=== PATIENT | female | born 1995 | race African-American/Black ===

== ENCOUNTER 2018-11-08 11:55 | Emergency (ER) | payer SELFPAY ==
--- OUTSIDE RECORDS SUMMARY | 2018-11-08 12:06 | XMS REPORT | Summary of Care ---
:1995 Author Organization [facility] Neurosurgery [facility] Address [address] [place] [address], [address] [place] [address]- Encounter HQ Encntr_alias(FIN) [id number] Date(s): 08/05/17 - 08/06/17 [place] [id number] [facility], [address] [place] [address] [phone] Vital Signs No data available for this section Problem List Condition Effective Dates Status Health Status Informant Acute bronchiolitis(Confirmed) Resolved Morbid obesity(Confirmed) Active Allergies, Adverse Reactions, Alerts No data available for this section Medications No data available for this section Results No data available for this section Immunizations No data available for this section Procedures No data available for this section Social History Social History Type Response Smoking Status Current some day smoker; Exposure to Tobacco Smoke Unable to obtain; Cigarette Smoking Last 365 Days Unable to obtain; Reg Smoking Cessation Counseling No Assessment and Plan No data available for this section
--- OUTSIDE RECORDS SUMMARY | 2018-11-08 12:06 | XMS REPORT | Summary of Care ---
:1995 Author Organization [facility] Address [address] [place] [address], [address] [place] [address]- Encounter HQ Encntr_aliharris(FIN) [id number] Date(s): 08/06/17 - 08/06/17 [facility] [place] [id number] [facility], [address] [place] [address] [phone] Discharge Disposition: Home or Self Care Attending Physician: Delroy Waddell MD Referring Physician: George Marrufo MD Vital Signs Most recent to oldest [Reference Range]: 1 Height 160.02 cm (08/06/17 8:40 AM) Temperature Oral [96.4-99.1 DegF] 97.9 DegF (08/06/17 8:40 AM) Blood Pressure [90-140/60-90 mmHg] 139/98 mmHg (08/06/17 8:40 AM) Peripheral Pulse Rate [60-100 bpm] 86 bpm (08/06/17 8:40 AM) Weight 112.727 kg (08/06/17 8:40 AM) Body Mass Index 44.02 m2 (08/06/17 8:40 AM) Problem List Condition Effective Dates Status Health Status Informant Acute bronchiolitis(Confirmed) Resolved Morbid obesity(Confirmed) Active Allergies, Adverse Reactions, Alerts No data available for this section Medications predniSONE 10 mg oral tablet 10 mg=1 tab, PO, Daily, 0 Refill(s) Start Date: 08/06/17 Status: Orderedtramadol 50 mg oral tablet 50 mg=1 tab, PO, Q4H, 0 Refill(s) Start Date: 08/06/17 Status: Ordered Results No data available for this section [...]
--- OUTSIDE RECORDS SUMMARY | 2018-11-08 12:06 | XMS REPORT | Continuity of Care Document ---
:1995 Author Organization Interface Problems Problem Status Onset Classification Date Comments Source Date Reported Acute Resolved Problem 03/08/2018 [facility] bronchiolitis Neuro Morbid obesity Active Problem 03/08/2018 [facility] Medications Medication Details Route Status Patient Ordering Order Source Instructions Provider Date tramadol 50 mg=1 Active [facility] hydrochloride 50 tab, PO, 017 [facility] MG Oral Tablet Q4H, 0 Refill(s) predniSONE 10 mg 10 mg=1 Active [facility] oral tablet tab, PO, 017 Neuro Daily, 0 Refill(s) Allergies, Adverse Reactions, Alerts Substance Category Reaction Severity Reaction Status Date Comments Source type Reported Immunizations Immunization Date Given Site Status Last Updated Comments Source Results Order Results Value Reference Date Interpretation Comments Source Name Range Vital Signs Vital Sign Value Date Comments Source Height 160.02 cm 11/12/2017 [facility] BMI Calculated 45.62 11/12/2017 [facility] Weight 116.818 11/12/2017 [facility] Systolic (mm Hg) 150 11/12/2017 [facility] Diastolic (mm Hg) 79 11/12/2017 [facility] Heart Rate 85 11/12/2017 [facility] Temperature Oral (F) 98.1 F 11/12/2017 [facility] BMI Calculated 44.02 08/06/2017 [facility] Weight 112.727 08/06/2017 [facility] Height 160.02 cm 08/06/2017 [facility] Heart Rate 86 08/06/2017 [facility] Temperature Oral (F) 97.9 F 08/06/2017 [facility] Systolic (mm Hg) 139 08/06/2017 [facility] Diastolic (mm Hg) 98 08/06/2017 [facility] Encounters Location Location Encounter Encounter Reason Attending ADM DC Status Source Details Type Number For Provider Date Date Visit [facility] Phone [id number] 08/05 08/07 [facility]2016 [facility] [id number] JOSE ANGEL KAUR 08/06 Active [facility] [id number] George 08/06 08/07 [facility] /2016 [facility] [id number] JOSE ANGEL KAUR 11/12 Active [place] [facility] [id number] George 11/12 11/13 [facility]2017 [facility] Phone [phone] 11/29 12/01 [facility] Procedures Procedure Code Date Perfomer Comments Source
--- OUTSIDE RECORDS SUMMARY | 2018-11-08 12:07 | XMS REPORT | Summary of Care ---
:1995 Author Organization [facility] Address [address] [place] [address], [address] [place] [address]- Encounter HQ Encntr_alias(FIN) [id number] Date(s): 11/29/17 - 11/30/[address], [address] [facility] [place], [place] [address] [phone] Vital Signs No data available for this [...] to obtain; Reg Smoking Cessation Counseling No entered on: 11/12/17 Assessment and Plan No data available for this section
--- OUTSIDE RECORDS SUMMARY | 2018-11-08 12:07 | XMS REPORT | Summary of Care ---
:1995 Author Organization [facility] Address [address] [facility], [address] [place] [address]- Encounter HQ Encntr_aliharris(FIN) [id number] Date(s): 11/12/17 - 11/12/17 [facility] [address] [facility], [address] [place] [address] [phone] Discharge Disposition: Home or Self Care Attending Physician: Delroy Waddell MD Referring Physician: George Marrufo MD Vital Signs Most recent to oldest [Reference Range]: 1 Height 160.02 cm (11/12/17 10:16 AM) Temperature Oral [96.4-99.1 DegF] 98.1 DegF (11/12/17 10:16 AM) Blood Pressure [90-140/60-90 mmHg] 150/79 mmHg *HI* (11/12/17 10:16 AM) Peripheral Pulse Rate [60-100 bpm] 85 bpm (11/12/17 10:16 AM) Weight 116.818 kg (11/12/17 10:16 AM) Body Mass Index 45.62 m2 (11/12/17 10:16 AM) Problem List Condition Effective Dates Status Health Status Informant Acute bronchiolitis(Confirmed) Resolved Morbid obesity(Confirmed) Active Allergies, Adverse Reactions, Alerts No data available for this section Medications No Known Medications Results No data available for this section [...]
--- OUTSIDE RECORDS SUMMARY | 2018-11-08 12:07 | XMS REPORT | Summary of Care ---
:1995 Author Organization [facility] Address [address] [place] [address], [address] [place] [address]- Encounter HQ Encntr_alias(FIN) [id number] Date(s): 11/29/17 - 11/30/[address], Suite [facility] [place], [place] [address] [phone] Vital Signs No data available for this [...]
--- NOTE | 2018-11-08 13:21 | ER ---
Nurse's Notes [facility] Name: Casi Cordova Age: 23 yrs Sex: Female : 1995 Arrival Date: 11/08/2018 Time: 11:56 Bed 27 Private MD: Diagnosis: Headache;Vertiginous syndromes in diseases classified elsewhere, unspecified ear Presentation: 11/08 12:03 Presenting complaint: Patient states: left ear "clogged" and dizziness started 3 days sv ago. Reports hx of skull fx in 2017. Transition of care: patient was not received from another setting of care. Onset of symptoms was November 05, 2018. Care prior to arrival: None. 12:03 Method Of Arrival: Ambulatory sv 12:03 Acuity: SANDRA 3 sv 13:05 Risk Assessment: Do you want to hurt yourself or someone else? Patient reports no ca1 desire to harm self or others. 13:05 Initial Sepsis Screen: Does the patient meet any 2 criteria? No. Patient's initial ca1 sepsis screen is negative. Does the patient have a suspected source of infection? No. Patient's initial sepsis screen is negative. Triage Assessment: 12:06 General: Appears in no apparent distress. comfortable, Behavior is calm, cooperative, sv appropriate for age. Pain: Denies pain. Neuro: Level of Consciousness is awake, alert, obeys commands, Oriented to person, place, time, situation, Moves all extremities. Full function Gait is steady, Speech is normal, Reports dizziness. Respiratory: Respiratory effort is even, unlabored, Respiratory pattern is regular, symmetrical. 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 - Family history:: not pertinent. - Social history:: Smoking status: Patient/guardian denies using tobacco. - Ebola Screening: : No symptoms or risks identified at this time. Screenin:05 Abuse screen: Denies threats or abuse. Denies injuries from another. Nutritional ca1 screening: No deficits noted. Tuberculosis screening: No symptoms or risk factors identified. Fall Risk None identified. Assessment: 13:05 General: Appears in no apparent distress. comfortable, Behavior is calm, cooperative, ca1 appropriate for age. Pain: Denies pain. Neuro: Level of Consciousness is awake, alert, obeys commands, Oriented to person, place, time, situation, Reports dizziness, since 4 days ago. Cardiovascular: Heart tones S1 S2 present Capillary refill < 3 seconds Patient's skin is warm and dry. Respiratory: Airway is patent Respiratory effort is even, unlabored, Respiratory pattern is regular, symmetrical, Breath sounds are clear bilaterally. GI: Abdomen is round non-distended, Bowel sounds present X 4 quads. Abd is soft and non tender X 4 quads. GI: Patient currently denies nausea, vomiting. : No deficits noted. No signs and/or symptoms were reported regarding the genitourinary system. EENT: No deficits noted. No signs and/or symptoms were reported regarding the EENT system. Derm: Skin is intact, is healthy with good turgor, Skin is pink, warm \\T\\ dry. Musculoskeletal: Circulation, motion, and sensation intact. Capillary refill < 3 seconds. 13:55 Reassessment: Patient appears in no apparent distress at this time. Patient and/or ca1 family updated on plan of care and expected duration. Pain level reassessed. Patient is alert, oriented x 3, equal unlabored respirations, skin warm/dry/pink. Vital Signs: 12:05 BP 128 / 94; Pulse 86; Resp 20; Temp 98.8; Weight 115.67 kg; Height 5 ft. 3 in. (160.02 sv cm); Pain 0/10; 13:05 BP 115 / 72; Pulse 90; Resp 19; Pulse Ox 99% on R/A; ca1 13:30 BP 113 / 87; Pulse 80; Resp 19; Pulse Ox 100% on R/A; ca1 13:55 BP 123 / 74; Pulse 77; Resp 19; Pulse Ox 100% on R/A; ca1 12:05 Body Mass Index 45.17 (115.67 kg, 160.02 cm) sv ED Course: 11:56 Patient arrived in ED. mr 12:04 Triage completed. sv 12:06 Arm band placed on. sv 12:56 Marc Fontanez MD is Attending Physician. [facility] 13:02 Sherry Cali, SHERRY is Primary Nurse. ca1 13:05 Patient has correct armband on for positive identification. Bed in low position. Call ca1 light in reach. Side rails up X 1. Pulse ox on. NIBP on. Warm blanket given. 14:18 No provider procedures requiring assistance completed. Patient did not have IV access ca1 during this emergency room visit. Administered Medications: 13:25 Drug: Zofran 4 mg Route: PO; ca1 14:15 Follow up: Response: No adverse reaction; Nausea is decreased ca1 13:50 Drug: Meclizine 50 mg Route: PO; ca1 14:15 Follow up: Response: No adverse reaction ca1 Outcome: 13:20 Discharge ordered by MD. begum 14:18 Discharged to home ambulatory. ca1 14:18 Condition: stable 14:18 Discharge instructions given to patient, Instructed on discharge instructions, follow up and referral plans. medication usage, Demonstrated understanding of instructions, follow-up care, medications, Prescriptions given X 2. 14:20 Patient left the ED. ca1 Signatures: Yee Romero RN RN Marc Garland MD MD cha Rivera, Mary mr Sherry Cali RN RN ca1 Corrections: (The following items were deleted from the chart) 12:05 12:05 BP 128 / 94; Resp 20bpm; Temp 98.8F; 115.67 kg; Height 5 ft. 3 in.; BMI: 45.1; sv Pain 0/10; sv 22:03 14:25 Response: No adverse reaction; Nausea is decreased ca1 ca1
--- NOTE | 2018-11-08 13:21 | EDPHYS ---
Physician Documentation [facility] Name: Casi Cordova Age: 23 yrs Sex: Female : 1995 Arrival Date: 11/08/2018 Time: 11:56 Bed 27 Private MD: ED Physician Marc Fontanez HPI: 11/08 13:17 This 23 yrs old Black Female presents to ER via Ambulatory with complaints of Dizziness.kel 13:17 The patient presents with dizziness. Onset: The symptoms/episode began/occurred 2 kel day(s) ago. Context: occurred at a hospital. Modifying factors: The symptoms are alleviated by holding head still, the symptoms are aggravated by movement of head, changing position. Associated signs and symptoms: Pertinent positives: headache, nausea. Severity of symptoms: At their worst the symptoms were mild in the emergency department the symptoms are unchanged. Patient's baseline: Neuro: alert and fully oriented. 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 - Family history:: not pertinent. - Social history:: Smoking status: Patient/guardian denies using tobacco. - Ebola Screening: : No symptoms or risks identified at this time. ROS: 13:17 Constitutional: Negative for fever, chills, and weight loss, Eyes: Negative for injury, kel pain, redness, and discharge, ENT: Negative for injury, pain, and discharge, Neck: Negative for injury, pain, and swelling, Cardiovascular: Negative for chest pain, palpitations, and edema, Respiratory: Negative for shortness of breath, cough, wheezing, and pleuritic chest pain, Abdomen/GI: Negative for abdominal pain, nausea, vomiting, diarrhea, and constipation, Back: Negative for injury and pain, : Negative for injury, bleeding, discharge, and swelling, MS/Extremity: Negative for injury and deformity, Skin: Negative for injury, rash, and discoloration, Psych: Negative for depression, anxiety, suicide ideation, homicidal ideation, and hallucinations, Allergy/Immunology: Negative for hives, rash, and allergies, Endocrine: Negative for neck swelling, polydipsia, polyuria, polyphagia, and marked weight changes, Hematologic/Lymphatic: Negative for swollen nodes, abnormal bleeding, and unusual bruising. 13:17 Neuro: Positive for dizziness, headache. Exam: 13:17 Constitutional: This is a well developed, well nourished patient who is awake, alert, kel and in no acute distress. Head/Face: Normocephalic, atraumatic. Eyes: Pupils equal round and reactive to light, extra-ocular motions intact. Lids and lashes normal. Conjunctiva and sclera are non-icteric and not injected. Cornea within normal limits. Periorbital areas with no swelling, redness, or edema. ENT: Nares patent. No nasal discharge, no septal abnormalities noted. Tympanic membranes are normal and external auditory canals are clear. Oropharynx with no redness, swelling, or masses, exudates, or evidence of obstruction, uvula midline. Mucous membranes moist. Neck: Trachea midline, no thyromegaly or masses palpated, and no cervical lymphadenopathy. Supple, full range of motion without nuchal rigidity, or vertebral point tenderness. No Meningismus. Chest/axilla: Normal chest wall appearance and motion. Nontender with no deformity. No lesions are appreciated. Cardiovascular: Regular rate and rhythm with a normal S1 and S2. No gallops, murmurs, or rubs. Normal PMI, no JVD. No pulse deficits. Respiratory: Lungs have equal breath sounds bilaterally, clear to auscultation and percussion. No rales, rhonchi or wheezes noted. No increased work of breathing, no retractions or nasal flaring. Abdomen/GI: Soft, non-tender, with normal bowel sounds. No distension or tympany. No guarding or rebound. No evidence of tenderness throughout. Back: No spinal tenderness. No costovertebral tenderness. Full range of motion. Skin: Warm, dry with normal turgor. Normal color with no rashes, no lesions, and no evidence of cellulitis. MS/ Extremity: Pulses equal, no cyanosis. Neurovascular intact. Full, normal range of motion. Neuro: Awake and alert, GCS 15, oriented to person, place, time, and situation. Cranial nerves II-XII grossly intact. Motor strength 5/5 in all extremities. Sensory grossly intact. Cerebellar exam normal. Normal gait. Psych: Awake, alert, with orientation to person, place and time. Behavior, mood, and affect are within normal limits. Vital Signs: 12:05 BP 128 / 94; Pulse 86; Resp 20; Temp 98.8; Weight 115.67 kg; Height 5 ft. 3 in. (160.02 sv cm); Pain 0/10; 13:05 BP 115 / 72; Pulse 90; Resp 19; Pulse Ox 99% on R/A; ca1 13:30 BP 113 / 87; Pulse 80; Resp 19; Pulse Ox 100% on R/A; ca1 13:55 BP 123 / 74; Pulse 77; Resp 19; Pulse Ox 100% on R/A; ca1 12:05 Body Mass Index 45.17 (115.67 kg, 160.02 cm) sv MDM: 12:56 Patient medically screened. [facility] 13:17 Data reviewed: vital signs, nurses notes. [facility] Administered Medications: 13:25 Drug: Zofran 4 mg Route: PO; ca1 14:15 Follow up: Response: No adverse reaction; Nausea is decreased ca1 13:50 Drug: Meclizine 50 mg Route: PO; ca1 14:15 Follow up: Response: No adverse reaction ca1 Disposition: 11/08/18 13:20 Discharged to Home. Impression: Headache, Vertiginous syndromes in diseases classified elsewhere, unspecified ear. - Condition is Stable. - Discharge Instructions: Dizziness, Vertigo, General Headache Without Cause, Qeha-to-Jpbu. - Prescriptions for Meclizine 25 mg Oral Tablet - take 1 tablet by ORAL route every 8 hours As needed; 26 tablet. Zofran 4 mg Oral Tablet - take 1 tablet by ORAL route every 12 hours As needed; 14 tablet. - Medication Reconciliation Form, Thank You Letter, Antibiotic Education, Prescription Opioid Use form. - Follow up: Private Physician; When: 2 - 3 days; Reason: Recheck today's complaints, Continuance of care, Re-evaluation by your physician. - Problem is new. - Symptoms have improved. Signatures: Yee Romero RN RN Marc Fontanez MD MD kel Sherry Cali RN RN ca1 Corrections: (The following items were deleted from the chart) 14:20 13:20 11/08/2018 13:20 Discharged to Home. Impression: Headache; Vertiginous syndromes ca1 in diseases classified elsewhere, unspecified ear. Condition is Stable. Forms are Medication Reconciliation Form, Thank You Letter, Antibiotic Education, Prescription Opioid Use. Follow up: Private Physician; When: 2 - 3 days; Reason: Recheck today's complaints, Continuance of care, Re-evaluation by your physician. Problem is new. Symptoms have improved. kel
[2018-11-08] MEDS ORDERED: ONDANSETRON 4 MG (ODT) TAB ONE (14:02)
[2018-11-08] MEDS ORDERED: MECLIZINE HCL 12.5 MG TAB ONE (14:02)
== END 2018-11-08 14:20 | disposition home or self-care (01) ==
LOC: ER 11:55
DX: R51 Headache (principal); H82.9 Vertiginous syndromes in diseases classified elsewhere, unspecified ear
CPT/HCPCS: 99283

== ENCOUNTER 2019-09-01 10:49 | Emergency (ER) | payer SELFPAY ==
--- NOTE | 2019-09-01 12:21 | RAD REPORT ---
EXAM DESCRIPTION: CT - Head Brain Wo Cont - 09/01/2019 12:16 pm CLINICAL HISTORY: Headache, altered vision COMPARISON: None. TECHNIQUE: Axial 5 mm thick images of the head were obtained without IV contrast. All CT scans are performed using dose optimization technique as appropriate and may include automated exposure control or mA/KV adjustment according to patient size. FINDINGS: No intracranial hemorrhage, mass, edema or shift of mid-line structures. No acute infarcti on changes seen. No abnormal extra-axial fluid collections. Ventricles are normal. Mastoid air cells and visualized portions of the paranasal sinuses are clear. No acute bony findings. IMPRESSION: Negative non-contrast CT head examination.
--- NOTE | 2019-09-01 14:19 | EDPHYS ---
Physician Documentation [facility] Name: Casi Cordova Age: 24 yrs Sex: Female : 1995 Arrival Date: 09/01/2019 Time: 10:52 Bed 19 Private MD: ED Physician Marc Fontanez HPI: 09/01 14:13 This 24 yrs old Black Female presents to ER via Ambulatory with complaints of Vision kel Problem. 14:13 The patient is experiencing blurred vision, double vision. Onset: The symptoms/episode kel began/occurred 3 day(s) ago. Duration: the symptoms are intermittent. Aggravated by opening eye, Alleviated by covering eye. Associated signs and symptoms: Pertinent positives: None. Pertinent negatives: None. Patient wears glasses, wears soft contacts. Severity of symptoms: At their worst the symptoms were mild in the emergency department the symptoms are unchanged. The patient has not experienced similar symptoms in the past. 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 - Social history:: Smoking status: Patient uses tobacco products, vapes . - Ebola Screening: : No symptoms or risks identified at this time. - Family history:: not pertinent. ROS: 14:13 Constitutional: Negative for fever, chills, and weight loss, ENT: Negative for injury, kel pain, and discharge, Neck: Negative for injury, pain, and swelling, Cardiovascular: Negative for chest pain, palpitations, and edema, Respiratory: Negative for shortness of breath, cough, wheezing, and pleuritic chest pain, Abdomen/GI: Negative for abdominal pain, nausea, vomiting, diarrhea, and constipation, Back: Negative for injury and pain, : Negative for injury, bleeding, discharge, and swelling, MS/Extremity: Negative for injury and deformity, Skin: Negative for injury, rash, and discoloration, Neuro: Negative for headache, weakness, numbness, tingling, and seizure, Psych: Negative for depression, anxiety, suicide ideation, homicidal ideation, and hallucinations, Allergy/Immunology: Negative for hives, rash, and allergies, Endocrine: Negative for neck swelling, polydipsia, polyuria, polyphagia, and marked weight changes, Hematologic/Lymphatic: Negative for swollen nodes, abnormal bleeding, and unusual bruising. 14:13 Eyes: Positive for blurry vision, of the iris of right eye. Exam: 14:13 Visual Acuity: I have reviewed the nursing documentation. Visual acuity is within kel normal limits. 14:13 Constitutional: This is a well developed, well nourished patient who is awake, alert, and in no acute distress. Head/Face: Normocephalic, atraumatic. Eyes: Pupils equal round and reactive to light, extra-ocular motions intact. Lids and lashes normal. Conjunctiva and sclera are non-icteric and not injected. Cornea within normal limits. Periorbital areas with no swelling, redness, or edema. ENT: Nares patent. No nasal discharge, no septal abnormalities noted. Tympanic membranes are normal and external auditory canals are clear. Oropharynx with no redness, swelling, or masses, exudates, or evidence of obstruction, uvula midline. Mucous membranes moist. Neck: Trachea midline, no thyromegaly or masses palpated, and no cervical lymphadenopathy. Supple, full range of motion without nuchal rigidity, or vertebral point tenderness. No Meningismus. Chest/axilla: Normal chest wall appearance and motion. Nontender with no deformity. No lesions are appreciated. Cardiovascular: Regular rate and rhythm with a normal S1 and S2. No gallops, murmurs, or rubs. Normal PMI, no JVD. No pulse deficits. Respiratory: Lungs have equal breath sounds bilaterally, clear to auscultation and percussion. No rales, rhonchi or wheezes noted. No increased work of breathing, no retractions or nasal flaring. Abdomen/GI: Soft, non-tender, with normal bowel sounds. No distension or tympany. No guarding or rebound. No evidence of tenderness throughout. Back: No spinal tenderness. No costovertebral tenderness. Full range of motion. Skin: Warm, dry with normal turgor. Normal color with no rashes, no lesions, and no evidence of cellulitis. MS/ Extremity: Pulses equal, no cyanosis. Neurovascular intact. Full, normal range of motion. Neuro: Awake and alert, GCS 15, oriented to person, place, time, and situation. Cranial nerves II-XII grossly intact. Motor strength 5/5 in all extremities. Sensory grossly intact. Cerebellar exam normal. Normal gait. Psych: Awake, alert, with orientation to person, place and time. Behavior, mood, and affect are within normal limits. Vital Signs: 11:41 BP 114 / 74; Pulse 80; Resp 18 S; Temp 97.8(TE); Pulse Ox 99% on R/A; Weight 117.93 kg aa5 (R); Height 5 ft. 3 in. (160.02 cm) (R); Pain 2/10; 14:00 BP 122 / 76; Pulse 78; Resp 15; Pulse Ox 100% on R/A; Pain 0/10; hb 11:41 Body Mass Index 46.05 (117.93 kg, 160.02 cm) aa5 Visual Acuity: 13:59 Left Eye Visual acuity 20/15, ; Right Eye Visual acuity 20/25, ; Both Eyes Visual hb acuity 20/15; With Lenses; MDM: 13:16 Patient medically screened. [facility] 14:16 Data reviewed: vital signs, nurses notes, radiologic studies, CT scan. [facility] 09/01 14:09 Order name: Glucose, Ancillary Testing; Complete Time: 14:13 EDRI 09/01 11:43 Order name: CT Head Brain wo Cont; Complete Time: 12:47 aa Administered Medications: No medications were administered Point of Care Testing: Blood Glucose: 13:59 Blood Glucose: 71 mg/dL; hb Ranges: Critical Glucose Levels:Adult <50 mg/dl or >400 mg/dl <40 mg/dl or >180 mg/dl Disposition: 09/01/19 14:18 Discharged to Home. Impression: Vision sensitivity deficiencies, Diplopia. - Condition is Stable. - Discharge Instructions: Blurred Vision, Adult, Diplopia. - Work release form, Medication Reconciliation Form, Thank You Letter, Antibiotic Education, Prescription Opioid Use form. - Follow up: Private Physician; When: 1 - 2 days; Reason: Recheck today's complaints, Continuance of care, Re-evaluation by your physician. Follow up: Sabino Esposito MD; When: 2 - 3 days; Reason: Recheck today's complaints, Continuance of care, Re-evaluation by your physician. - Problem is new. - Symptoms have improved. Signatures: Dispatcher [employer] EDMarc Washburn MD MD cha Calderon, Audri, RN RN aa5 Marc Alarcon PA PA cp Baxter, Heather, RN RN hb Corrections: (The following items were deleted from the chart) 14:36 14:18 09/01/2019 14:18 Discharged to Home. Impression: Vision sensitivity deficiencies; hb Diplopia. Condition is Stable. Forms are Medication Reconciliation Form, Thank You Letter, Antibiotic Education, Prescription Opioid Use. Follow up: Private Physician; When: 1 - 2 days; Reason: Recheck today's complaints, Continuance of care, Re-evaluation by your physician. Follow up: Sabino Esposito; When: 2 - 3 days; Reason: Recheck today's complaints, Continuance of care, Re-evaluation by your physician. Problem is new. Symptoms have improved. kel
--- NOTE | 2019-09-01 14:19 | ER ---
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 Pt also reports headache. Transition of care: patient was not received from another setting of care. Onset of symptoms was August 2019. Risk Assessment: Do you want to hurt yourself or someone else? Patient reports no desire to harm self or others. Initial Sepsis Screen: Does the patient meet any 2 criteria? No. Patient's initial sepsis screen is negative. Does the patient have a suspected source of infection? No. Patient's initial sepsis screen is negative. Care prior to arrival: None. 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 - Social history:: Smoking status: Patient uses tobacco products, vapes . - Ebola Screening: : No symptoms or risks identified at this time. - Family history:: not pertinent. Screenin:10 Abuse screen: Denies threats or abuse. Denies injuries from another. Nutritional hb screening: No deficits noted. Tuberculosis screening: No symptoms or risk factors identified. Fall Risk None identified. Assessment: 13:00 General: Appears in no apparent distress. Behavior is calm, cooperative. Pain: Denies hb pain. Neuro: Level of Consciousness is awake, alert, obeys commands, Oriented to person, place, time, situation. Cardiovascular: Capillary refill < 3 seconds Patient's skin is warm and dry. Respiratory: Airway is patent Respiratory effort is even, unlabored, Respiratory pattern is regular, symmetrical. GI: No signs and/or symptoms were reported involving the gastrointestinal system. : No signs and/or symptoms were reported regarding the genitourinary system. EENT: No signs and/or symptoms were reported regarding the EENT system. Derm: Skin is intact, is healthy with good turgor. Musculoskeletal: No signs and/or symptoms reported regarding the musculoskeletal system. 14:00 Reassessment: Patient appears in no apparent distress at this time. Patient and/or hb family updated on plan of care and expected duration. Pain level reassessed. Patient is alert, oriented x 3, equal unlabored respirations, skin warm/dry/pink. Vital Signs: 11:41 BP 114 / 74; Pulse 80; Resp 18 S; Temp 97.8(TE); Pulse Ox 99% on R/A; Weight 117.93 kg aa5 (R); Height 5 ft. 3 in. (160.02 cm) (R); Pain 2/10; 14:00 BP 122 / 76; Pulse 78; Resp 15; Pulse Ox 100% on R/A; Pain 0/10; hb 11:41 Body Mass Index 46.05 (117.93 kg, 160.02 cm) aa5 Visual Acuity: 13:59 Left Eye Visual acuity 20/15, ; Right Eye Visual acuity 20/25, ; Both Eyes Visual hb acuity 20/15; With Lenses; ED Course: 10:52 Patient arrived in ED. ag5 11:38 Arm band placed on. aa5 11:40 Triage completed. aa5 12:16 CT Head Brain wo Cont In Process Unspecified. EDMS 13:02 Ursula Avila, SHERRY is Primary Nurse. hb 13:10 Patient has correct armband on for positive identification. Bed in low position. Call hb light in reach. Side rails up X 1. 13:16 Marc Fontanez MD is Attending Physician. kel 14:16 Sabino Esposito MD is Referral Physician. kel 14:35 No provider procedures requiring assistance completed. Patient did not have IV access hb during this emergency room visit. Administered Medications: No medications were administered Point of Care Testing: Blood Glucose: 13:59 Blood Glucose: 71 mg/dL; hb Ranges: Outcome: 14:18 Discharge ordered by . kel 14:35 Discharged to home ambulatory, with friend. hb 14:35 Condition: stable 14:35 Discharge instructions given to patient, Instructed on discharge instructions, follow up and referral plans. Demonstrated understanding of instructions, follow-up care. 14:36 Patient left the ED. Signatures: Dispatcher [employer] Marc Carolina MD MD cha Calderon, Audri, RN RN aa5 Ursula Avila RN RN Jerrod Hart 5
[2019-09-01 15:21] VITALS: TEMP 97.8
[2019-09-01 15:23] VITALS: BP 122/76; O2SAT 100
== END 2019-09-01 14:36 | disposition home or self-care (01) ==
LOC: ER 10:49
DX: H53.8 Other visual disturbances (principal); H53.2 Diplopia; Z72.0 Tobacco use
CPT/HCPCS: 70450; 82947; 99283

== ENCOUNTER 2022-08-28 12:51 | Emergency (ER) | payer SELFPAY ==
--- OUTSIDE RECORDS SUMMARY | 2022-08-28 12:55 | XMS REPORT | Continuity of Care Document ---
:1995 Author Organization [facility] t Address [facility] [place] [address] Care Team Providers Name Role Phone PCP, PATIENT DOES NOT HAVE A Primary Care Physician Unavaila CALIN Vaz Attending Clinician Unavailable Delroy Waddell Attending Clinician Problems Condition Condition Condition Status Onset Resolution Last Treating Co mments Source Name Details Category Date Date Treatment Clinician Date Morbid Morbid Problem Active 2018-03-08 Mem oria obesity obesity 15:19:10 l (disorder) (disorder) He rmann Active Problem 03/08/2018 [facility] Neuro Acute Acute Problem Resolve 2018-03-08 Dom kassie bronchioli bronchioli d 15:19:10 l tis lei Anthony (disorder) (disorder) Resolved Problem 03/08/2018 April Neuro Allergies, Adverse Reactions, Alerts Allergy Allergy Status Severity Reaction(s) Onset Inactive Treating Comm ents Source Name Type Date Date Clinician NO KNOWN Drug Active [facility] ALLERGIE Class ity [facility] Social History Smoking Status Start Date Stop Date Source Social History 2017-11-12 15:17:32 Micha stewart Medications Ordered Filled Start Stop Current Ordering Indication Dosage Frequency Signature Comments Components Source Medication Medication Date Date Medication? Clinician (SIG) Name Name tramadol 2016-08 Yes 50 mg = 1 Dom kassie hydrochlori 2-15 tab, PO, l de 50 MG 14:57: Q4H, 0 Anthony Oral Tablet 00 Refill(s) predniSONE 2016-08 Yes 10 mg = 1 Me moria 10 mg oral 2-15 tab, PO, l tablet 14:57: Daily, 0 Smooth 00 Refill(s) Vital Signs Vital Name Observation Time Observation Value Comments Source Height 2017-11-12 15:16:00 160.02 cm Micha Rebollar BMI Calculated 2017-11-12 15:16:00 Memori al Anthony Weight 2017-11-12 15:16:00 [facility] Systolic (mm Hg) 2017-11-12 15:16:00 Dom rial Anthony Diastolic (mm Hg) 2017-11-12 15:16:00 Mem [facility] Heart Rate 2017-11-12 15:16:00 [facility] Temperature Oral (F) 2017-11-12 15:16:00 98.1 F [facility] BMI Calculated 2017-08-06 14:40:00 [facility] Weight 2017-08-06 14:40:00 [facility] Height 2017-08-06 14:40:00 160.02 cm [facility] Heart Rate 2017-08-06 14:40:00 [facility] Temperature Oral (F) 2017-08-06 14:40:00 97.9 F [facility] Systolic (mm Hg) 2017-08-06 14:40:00 Dom rial Anthony Diastolic (mm Hg) 2017-08-06 14:40:00 Mem orial [facility] Procedures This patient has no known procedures. Encounters Start End Encounter Admission Attending Care Care Encounter Source Date/Time Date/Time Type Type Clinicians Facility Department ID 2020-11-22 2020-11-22 Outpatient [facility] [id number] [facility] 14:45:00 14:45:00 [facility] 2020-11-01 2020-11-01 Outpatient [facility] [id number] [facility] 14:35:00 14:35:00 [facility] 2020-03-12 2020-03-12 Outpatient Rosibel VAN, [facility] [id number] Univers 17:00:00 17:00:00 CALIN [facility] 2017-11-29 2017-12-01 Phone nullFlavo MNA [id number] Memoria 19:54:00 04:59:59 Message r Neurosurger 03 l y EDWINA [facility] 2017-11-29 2017-11-30 Outpatient MHMISCHER MHMISCHER [id number] 14:54:00 23:59:59 2017-11-29 2017-11-30 Outpatient MHMISCHER MHMISCHER [id number] 14:54:00 23:59:59 2017-11-12 2017-11-13 Outpatient nullFlavo MNA [id number] Memoria 14:00:00 04:59:59 r [facility]surger 01 l [facility] 2017-11-12 2017-11-12 Outpatient Nadira Delroy MHMISCHER MHMISCHER [id number] 09:00:00 23:59:59 Arjun 2017-11-12 2017-11-12 Outpatient MHIE MHIE [id number] Memoria 09:00:00 09:00:00 01 shanta Rebollar 2017-08-06 2017-08-07 Outpatient nullFlavo MNA [id number] Memoria 14:00:00 05:59:59 r Neurosurger 00 l y [facility] 2017-08-05 2017-08-07 Phone nullFlavo MNA [id number] Memoria 18:57:00 05:59:59 Message r Neurosurger 02 l y [facility] Smooth 2017-08-06 2017-08-06 Outpatient Delroy Waddell MHMISCHER MHMISCHER [id number] 08:00:00 23:59:59 Arjun 2017-08-05 2017-08-06 Outpatient MHMISCHER MHMISCHER [id number] 12:57:00 23:59:59 02 2017-08-06 2017-08-06 Outpatient MHIE MHIE [id number] Memoria 08:00:00 08:00:00 00 shanta Rebollar Results This patient has no known results.
--- NOTE | 2022-08-28 13:17 | ER ---
Nurse's Notes [facility] Name: Casi Cordova Age: 27 yrs Sex: Female : 1995 Arrival Date: 08/28/2022 Time: 12:55 Bed IW3 Private MD: Diagnosis: Acute sinusitis, unspecified;Acute serous otitis media, bilateral Presentation: 08/28 13:12 Chief complaint: Patient states: sinus drainage and congestion x 1-2 weeks, scratchy kb3 throat since Wednesday, swollen painful bilateral neck lymph nodes and pain/pressure in bilateral ears since yesterday. Coronavirus screen: Vaccine status: Patient reports receiving the 2nd dose of the covid vaccine. Client denies travel out of the [place] in the last 14 days. Ebola Screen: Patient negative for fever greater than or equal to 101.5 degrees Fahrenheit, and additional compatible Ebola Virus Disease symptoms Patient denies exposure to infectious person. Patient denies travel to an Ebola-affected area in the 21 days before illness onset. Initial Sepsis Screen: Does the patient meet any 2 criteria? No. Patient's initial sepsis screen is negative. Does the patient have a suspected source of infection? No. Patient's initial sepsis screen is negative. Risk Assessment: Do you want to hurt yourself or someone else? Patient reports no desire to harm self or others. Onset of symptoms was August 23, 2022. 13:12 Method Of Arrival: Ambulatory kb3 13:12 Acuity: SANDRA 4 kb3 Triage Assessment: 13:16 General: Appears in no apparent distress. Behavior is calm, cooperative. Pain: kb3 Complains of pain in right cheek, left cheek, uvula, left aspect of posterior pharynx, right aspect of posterior pharynx, right ear and left ear Pain does not radiate. Pain currently is 7 out of 10 on a pain scale. Quality of pain is described as pressure. EENT: Tympanic membrane reddened on left ear and right ear Throat is reddened. 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 - Social history:: Smoking status: Reported history of juuling and/or vaping. Screenin:18 [facility] ED Fall Risk Assessment (Adult) History of falling in the last 3 months, kb3 including since admission No falls in past 3 months (0 pts) Confusion or Disorientation No (0 pts) Intoxicated or Sedated No (0 pts) Impaired Gait No (0 pts) Mobility Assist Device Used No (0 pt) Altered Elimination No (0 pt) Score/Fall Risk Level 0 - 2 = Low Risk Oriented to surroundings, Maintained a safe environment, Educated pt \T\ family on fall prevention, incl call for assistance when getting out of bed, Assessed \T\ reinforced patient's understanding of fall precautions, Provided non-skid footwear, Hourly rounding (assess needs \T\ fall precautionary measures) done, Used ambulatory aids as needed (educated on \T\ assisted with). Abuse screen: Denies threats or abuse. Denies injuries from another. Nutritional screening: No deficits noted. Tuberculosis screening: No symptoms or risk factors identified. Assessment: 13:18 General: see triage note. Respiratory: Airway is patent Respiratory effort is even, kb3 unlabored, Breath sounds are clear. Vital Signs: 13:16 Pulse 89; Resp 18; Temp 98.9; Pulse Ox 100% ; Weight 107.95 kg; Height 5 ft. 4 in. kb3 (162.56 cm); Pain 6/10; 13:16 Body Mass Index 40.85 (107.95 kg, 162.56 cm) kb3 ED Course: 12:55 Patient arrived in ED. cc5 13:04 [facility]-C [facility] kb 13:04 Zeke Feldman DO is Attending Physician. kb 13:16 Triage completed. kb3 13:16 Arm band placed on right wrist. kb3 13:18 Patient has correct armband on for positive identification. kb3 13:18 No provider procedures requiring assistance completed. Patient did not have IV access kb3 during this emergency room visit. 13:22 Sigrid Mercedes, RN is Primary Nurse. kb3 Administered Medications: No medications were administered Medication: 13:18 VIS not applicable for this client. kb3 Outcome: 13:16 Discharge ordered by . kb 13:22 Discharged to home ambulatory. kb3 13:22 Condition: stable 13:22 Discharge instructions given to patient, Instructed on discharge instructions, follow up and referral plans. medication usage, Demonstrated understanding of instructions, follow-up care, medications, Prescriptions given X 1. 13:22 Patient left the ED. kb3 Signatures: Alexa Jonas, ACCOUNTANT CLERK-C ACCOUNTANT CLERK-Sigrid Saucedo, RN RN kb3 Cadence Reyes
--- NOTE | 2022-08-28 13:17 | EDPHYS ---
Physician Documentation [facility] Name: Casi Cordova Age: 27 yrs Sex: Female : 1995 Arrival Date: 08/28/2022 Time: 12:55 Bed IW3 Private MD: ED Physician Zeke Feldman HPI: 08/28 14:47 This 27 yrs old Black Female presents to ER via Ambulatory with complaints of Drainage kb From Ear, Sore Throat. 14:47 The patient presents with pain, moderate. The complaints affect the right ear and left kb ear. Onset: The symptoms/episode began/occurred today. Modifying factors: The symptoms are alleviated by nothing, the symptoms are aggravated by nothing. Associated signs and symptoms: Pertinent positives: sore throat, rhinorrhea. Severity of symptoms: At their worst the symptoms were moderate in the emergency department the symptoms are unchanged. The patient has not experienced similar symptoms in the past. The patient has not recently seen a physician. Pt reports sinus congestion for 2 weeks, intermittent sore throat and today has had pain to lymphnodes and ears. . 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 - Social history:: Smoking status: Reported history of juuling and/or vaping. ROS: 14:46 Constitutional: Negative for fever, chills, and weight loss. kb 14:46 ENT: Positive for ear pain, rhinorrhea, sinus congestion, sinus pain, sore throat. 14:46 All other systems are negative. Exam: 14:46 Constitutional: This is a well developed, well nourished patient who is awake, alert, kb and in no acute distress. Head/Face: Normocephalic, atraumatic. Cardiovascular: Regular rate and rhythm with a normal S1 and S2. No gallops, murmurs, or rubs. No pulse deficits. Respiratory: Respirations even and unlabored. No increased work of breathing. Talking in full sentences Abdomen/GI: Soft, non-tender. No distention Skin: Warm, dry with normal turgor. Normal color. MS/ Extremity: Pulses equal, no cyanosis. Neurovascular intact. Full, normal range of motion. Neuro: Awake and alert, GCS 15, oriented to person, place, time, and situation. Moves all extremities. Normal gait. 14:46 ENT: External ear(s): are unremarkable, Ear canal(s): are normal, TM's: erythema, that is mild, bilaterally, fluid levels, bilaterally. Vital Signs: 13:16 Pulse 89; Resp 18; Temp 98.9; Pulse Ox 100% ; Weight 107.95 kg; Height 5 ft. 4 in. kb3 (162.56 cm); Pain 6/10; 13:16 Body Mass Index 40.85 (107.95 kg, 162.56 cm) kb3 MDM: 13:16 Patient medically screened. kb 14:47 Data reviewed: vital signs, nurses notes. Data interpreted: Pulse oximetry: on room air kb is 100 %. Interpretation: normal. 14:51 Counseling: I had a detailed discussion with the patient and/or guardian regarding: the kb historical points, exam findings, and any diagnostic results supporting the discharge/admit diagnosis, the need for outpatient follow up, a family practitioner, to return to the emergency department if symptoms worsen or persist or if there are any questions or concerns that arise at home. 14:51 ED course: I considered the following discharge prescriptions or medication management kb in the emergency department: considered prescribing steroids, but discussed use of flonase instead. Pt will begin using this OTC medication; Diagnostic test considered but not performed: considered flu, covid and strep tests, but the results would not change treatment plan. Discussed this with pt and she agrees with not being tested; History obtained from: pt. 19:23 Differential diagnosis: otitis media, otitis externa, acute otalgia. kb Administered Medications: No medications were administered Disposition: 16:12 Co-signature as Attending Physician, Zeke DUENAS was immediately available on-site ms3 in the Emergency Department for consultation in the care of the patient. Disposition Summary: 08/28/22 13:16 Discharge Ordered Location: Home kb Condition: Stable kb Diagnosis - Acute sinusitis, unspecified kb - Acute serous otitis media, bilateral kb Followup: kb - With: Emergency Department - When: As needed - Reason: Worsening of condition Followup: kb - With: Private Physician - When: 2 - 3 days - Reason: Recheck today's complaints, Continuance of care, Re-evaluation by your physician Discharge Instructions: - Discharge Summary Sheet kb - Otitis Media, Adult, [id number] kb - Sinusitis, Adult, [id number] kb Forms: - Medication Reconciliation Form kb - Thank You Letter kb - Antibiotic Education kb - Prescription Opioid Use kb Prescriptions: - Augmentin 875-125 mg Oral Tablet - take 1 tablet by ORAL route every 12 hours for 10 days; 20 tablet; Refills: 0, kb Product Selection Permitted Signatures: Alexa Jonas, JUAN JOSE ESCOBAR-Zeke Haque DO DO ms3 Sigrid Mercedes, RN RN kb3
[2022-08-28 13:26] VITALS: TEMP 98.9; O2SAT 100
== END 2022-08-28 13:22 | disposition home or self-care (01) ==
LOC: ER 12:51
DX: J01.90 Acute sinusitis, unspecified (principal); H65.03 Acute serous otitis media, bilateral
CPT/HCPCS: 99281

== ENCOUNTER 2022-10-29 17:18 | Emergency (ER) | payer SELFPAY ==
--- OUTSIDE RECORDS SUMMARY | 2022-10-29 17:20 | XMS REPORT | Continuity of Care Document ---
:1995 Author Organization Formerly [facility] t Address [address] [place] [id number] Care Team Providers Name Role Phone PCP, PATIENT DOES NOT HAVE A Primary Care Physician Unavaila CALIN Vaz Attending Clinician Unavailable Delroy Waddell Attending Clinician Problems Condition Condition Condition Status Onset Resolution Last Treating Co mments Source Name Details Category Date Date Treatment Clinician Date Acute Acute Problem Resolve 2018-03-08 Mem oria bronchioli bronchioli d 15:19:10 l tis tis Smooth (disorder) (disorder) Resolved Problem 03/08/2018 [facility] Morbid Morbid Problem Active 2018-03-08 Dom kassie obesity obesity 15:19:10 l (disorder) (disorder) He rmann Active Problem 03/08/2018 [facility] Allergies, Adverse Reactions, Alerts Allergy Allergy Status Severity Reaction(s) Onset Inactive Treating Comm ents Source Name Type Date Date Clinician NO KNOWN Drug Active [facility] Social History Smoking Status Start Date Stop Date Source Social History 2017-11-12 15:17:32 [facility] Medications Ordered Filled Start Stop Current Ordering Indication Dosage Frequency Signature Comments Components Source Medication Medication Date Date Medication? Clinician (SIG) Name Name tramadol 2016-08 Yes 50 mg = 1 Dom kassie hydrochlori 2-15 tab, PO, l de 50 MG 14:57: Q4H, 0 Adrian Oral Tablet 00 Refill(s) predniSONE 2016-08 Yes 10 mg = 1 Me moria 10 mg oral 2-15 tab, PO, l tablet 14:57: Daily, 0 Smooth 00 Refill(s) tramadol 2016-08 Yes 50 mg = 1 Dom kassie hydrochlori 2-15 tab, PO, l de 50 MG 14:57: Q4H, 0 Adrian Oral Tablet 00 Refill(s) predniSONE 2017- Yes 10 mg = 1 Me moria 10 mg oral 2-15 tab, PO, l tablet 14:57: Daily, 0 Smooth 00 Refill(s) Vital Signs Vital Name Observation Time Observation Value Comments Source Height 2017-11-12 15:16:00 160.02 cm [facility] BMI Calculated 2017-11-12 15:16:00 [facility] Weight 2017-11-12 15:16:00 [facility] Systolic (mm Hg) 2017-11-12 15:16:00 Dom rial Smooth Diastolic (mm Hg) 2017-11-12 15:16:00 Mem [facility] Heart Rate 2017-11-12 15:16:00 [facility] Temperature Oral (F) 2017-11-12 15:16:00 98.1 F [facility] BMI Calculated 2017-08-06 14:40:00 [facility] Weight 2017-08-06 14:40:00 [facility] Height 2017-08-06 14:40:00 160.02 cm [facility] Heart Rate 2017-08-06 14:40:00 [facility] Temperature Oral (F) 2017-08-06 14:40:00 97.9 F [facility] Systolic (mm Hg) 2017-08-06 14:40:00 Dom rial Smooth Diastolic (mm Hg) 2017-08-06 14:40:00 Mem orial Smooth Procedures This patient has no known procedures. Encounters Start End Encounter Admission Attending Care Care Encounter Source Date/Time Date/Time Type Type Clinicians Facility Department ID 2020-11-22 2020-11-22 Outpatient [facility] [id number] [facility] 14:45:00 14:45:00 [facility] 2020-11-01 2020-11-01 Outpatient [facility] [id number] [facility] 14:35:00 14:35:00 [facility] 2020-03-12 2020-03-12 Outpatient R CARLOTA, [facility] [id number] [facility] 17:00:00 17:00:00 CALIN [facility] 2017-11-29 2017-12-01 Phone nullFlavo MNA [id number] [facility]oria 19:54:00 04:59:59 Message r Neurosurger 03 l y [facility] 2017-11-29 2017-12-01 Phone nullFlavo MNA [id number] [facility] 19:54:00 04:59:59 Message r Neurosurger 03 l y [facility] 2017-11-29 2017-11-30 Outpatient MHMISCHER MHMISCHER [id number] 14:54:00 23:59:59 03 2017-11-29 2017-11-30 Outpatient MHMISCHER MHMISCHER [id number] 14:54:00 23:59:59 2017-11-12 2017-11-13 Outpatient nullFlavo MNA [id number] Mem[facility] 14:00:00 04:59:59 r Neurosurger 01 l y [facility] 2017-11-12 2017-11-13 Outpatient nullFlavo MNA [id number] [facility] 14:00:00 04:59:59 r Neurosurger 01 l y [facility] 2017-11-12 2017-11-12 [facility] [id number] 09:00:00 23:59:59 Arjun 2017-11-12 2017-11-12 Outpatient MHIE MHIE [id number] Mem[facility] 09:00:00 09:00:00 01 l [facility] 2017-08-06 2017-08-07 Outpatient nullFlavo MNA [id number] Mem[facility] 14:00:00 05:59:59 r Neurosurger 00 l y [facility] 2017-08-06 2017-08-07 Outpatient nullFlavo MNA [id number] [facility] 14:00:00 05:59:59 r Neurosurger 00 l y [facility] 2017-08-05 2017-08-07 Phone nullFlavo MNA [id number] [facility] 18:57:00 05:59:59 Message r Neurosurger 02 l y [facility] 2017-08-05 2017-08-07 Phone nullFlavo MNA [id number] [facility] 18:57:00 05:59:59 Message r Neurosurger 02 l y [facility] 2017-08-06 2017-08-06 [facility] [id number] 08:00:00 23:59:59 Arjun 00 2017-08-05 2017-08-06 Outpatient MHMISCHER MISCHER [id number] 12:57:00 23:59:59 02 2017-08-06 2017-08-06 Outpatient [facility] [id number] [facility] 08:00:00 08:00:00 00 shanta Rebollar Results This patient has no known results.
--- NOTE | 2022-10-29 18:19 | RAD REPORT ---
EXAM DESCRIPTION: CT - Head Brain Wo Cont - 10/29/2022 6:09 pm CLINICAL HISTORY: right side facial twitching Headache, drowsiness COMPARISON: Head Brain Wo Cont dated 09/01/2019 TECHNIQUE: All CT scans are performed using dose optimization technique as appropriate and may inclu de automated exposure control or mA/KV adjustment according to patient size. FINDINGS: No intracranial hemorrhage, hydrocephalus or extra-axial fluid collection.No areas of brai n edema or evidence of midline shift. The paranasal sinuses and mastoids are clear. The calvarium is intact. IMPRESSION: No acute intracranial abnormality.
[2022-10-29 19:26] VITALS: BP 157/79; TEMP 97.2; O2SAT 100
--- NOTE | 2022-11-13 15:10 | EDPHYS ---
Physician Documentation [facility] Name: Casi Cordova Age: 27 yrs Sex: Female : 1995 Arrival Date: 10/29/2022 Time: 17:19 Bed 12 Private MD: ED Physician Destin Cintron HPI: 10/29 17:40 This 27 yrs old Black Female presents to ER via Ambulatory with complaints of Facial cp Droop - Possible Sheets's Palsy. 17:40 Patient presents to ED with c/o right side facial "tightness" and twitching. Patient cp denies numbness, pain and worsening hearing to right side of face. Denies change in speech, worsening facial droop. 17:40 Onset: The symptoms/episode began/occurred today. cp Historical: - Allergies: 17:26 No Known Allergies; hb - Immunization history:: Adult Immunizations up to date. - Social history:: Smoking status: unknown. ROS: 17:45 Constitutional: Negative for body aches, chills, fever, poor PO intake. cp 17:45 Eyes: Negative for injury, pain, redness, and discharge. cp 17:45 Cardiovascular: Negative for chest pain, palpitations. 17:45 Neuro: Negative for altered mental status, dizziness, headache, numbness, speech changes, weakness. 17:45 All other systems are negative. Exam: 17:50 Constitutional: The patient appears in no acute distress, alert, awake, cp non-diaphoretic, non-toxic, well developed, well nourished, obese. 17:50 Head/face: Noted is mild left side facial droop. cp 17:50 Eyes: Periorbital structures: appear normal, Pupils: equal, round, and reactive to light and accomodation, Extraocular movements: intact throughout, Conjunctiva: normal, Sclera: no appreciated abnormality, Lids and lashes: appear normal, bilaterally. 17:50 ENT: External ear(s): are unremarkable, Ear canal(s): are normal, clear, TM's: dullness, bilaterally, Nose: is normal, Mouth: Lips: moist, Oral mucosa: moist, Posterior pharynx: Airway: no evidence of obstruction, patent. 17:50 Neck: ROM/movement: is normal, is supple, without pain, no range of motions limitations. 17:50 Chest/axilla: Inspection: normal. 17:50 Cardiovascular: Rate: normal. 17:50 Respiratory: the patient does not display signs of respiratory distress, Respirations: normal, no use of accessory muscles, no retractions. 17:50 Abdomen/GI: Exam negative for discomfort, distension, guarding. 17:50 Neuro: Orientation: to person, place \\T\\ time. Mentation: is normal, Cerebellar function: is grossly normal, Motor: moves all fours, strength is normal, Sensation: is normal, Gait: is steady, at a normal pace, without difficulty. 18:25 Radiologist reports: no acute findings cp Vital Signs: 17:22 BP 157 / 79; Pulse 84; Resp 18; Temp 97.2; Pulse Ox 100% on R/A; Weight 111.13 kg; hb Height 5 ft. 4 in. ; Pain 0/10; 17:22 Body Mass Index 42.05 (111.13 kg, 162.56 cm) hb 17:22 Pain Scale: Adult hb MDM: 17:34 Patient medically screened. cp 18:40 Data reviewed: vital signs, nurses notes, radiologic studies, CT scan. cp 18:40 Differential diagnosis: CVA, TIA, metabolic disorder, drug effects. Test considered but cp Not performed: MRI: brain. Counseling: I had a detailed discussion with the patient and/or guardian regarding: the historical points, exam findings, and any diagnostic results supporting the discharge/admit diagnosis, to return to the emergency department if symptoms worsen or persist or if there are any questions or concerns that arise at home. 10/29 17:34 Order name: CT Head Brain wo Cont; Complete Time: 18:23 cp 10/29 18:23 Interpretation: Report reviewed. cp 10/29 17:40 Order name: Urine Test (obtain specimen) cp 10/29 17:40 Order name: Urine Dipstick-Ancillary (obtain specimen) cp Administered Medications: No medications were administered Disposition: 10/30 07:01 Co-signature as Attending Physician, Destin Cintron MD. rn Disposition Summary: 10/29/22 18:41 Discharge Ordered Location: Home cp Problem: new cp Symptoms: are unchanged cp Condition: Stable cp Diagnosis - Muscle spasm cp Followup: cp - With: Private Physician - When: 2 - 3 days - Reason: Worsening of condition Discharge Instructions: - Discharge Summary Sheet cp - Muscle Cramps and Spasms cp Forms: - Medication Reconciliation Form cp - Thank You Letter cp - Antibiotic Education cp - Prescription Opioid Use cp Prescriptions: - Ibuprofen 800 mg Oral Tablet - take 1 tablet by ORAL route every 8 hours As needed take with food; 30 tablet; cp Refills: 0, Product Selection Permitted - orphenadrine citrate 100 mg Oral Tablet Sustained Release - take 1 tablet by ORAL route 2 times per day As needed; 20 tablet; Refills: 0, cp Product Selection Permitted Signatures: Dispatcher [employer] EDMS Destin Cintron MD MD rn Marc Alarcon PA PA cp Ursula Avila RN RN Maria De Jesus Ross RN RN eh3 Corrections: (The following items were deleted from the chart) 10/29 18:42 18:41 Disorder of facial nerve, unspecified cp cp 10/30 18:09 10/29 17:40 Patient presents to ED with c/o right side facial "tightness" and cp twitching. Patient denies numbness, pain and worsening hearing to right side of face. cp
--- NOTE | 2022-11-13 15:10 | ER ---
[facility]'s Notes [facility] Name: Casi Cordova Age: 27 yrs Sex: Female : 1995 Arrival Date: 10/29/2022 Time: 17:19 Bed 12 Private MD: Diagnosis: Muscle spasm Presentation: 10/29 17:22 Chief complaint: Right eye twitching last week, then twitching in right forehead and hb right cheek, noticed right side of face is pulling to the right this morning. Hx of Westby Palsy, reports same symptoms last time. VAN Negative. Coronavirus screen: At this time, the client does not indicate any symptoms associated with coronavirus-19. Ebola Screen: No symptoms or risks identified at this time. Initial Sepsis Screen: Does the patient meet any 2 criteria? No. Patient's initial sepsis screen is negative. Does the patient have a suspected source of infection? No. Patient's initial sepsis screen is negative. Risk Assessment: Do you want to hurt yourself or someone else? Patient reports no desire to harm self or others. Onset of symptoms was October 22, 2022. 17:22 Method Of Arrival: Ambulatory hb 17:22 Acuity: SANDRA 3 hb Historical: - Allergies: 17:26 No Known Allergies; hb - Immunization history:: Adult Immunizations up to date. - Social history:: Smoking status: unknown. Screenin:30 [facility] ED Fall Risk Assessment (Adult) Score/Fall Risk Level 0 - 2 = Low Risk. Abuse eh3 screen: Denies threats or abuse. Denies injuries from another. Nutritional screening: No deficits noted. Tuberculosis screening: No symptoms or risk factors identified. Assessment: 17:30 General: Appears in no apparent distress. uncomfortable, Behavior is calm, cooperative, eh3 appropriate for age. Pain: Denies pain. Neuro: Level of Consciousness is awake, alert, obeys commands, Oriented to person, place, time, situation, Speech is normal, Facial symmetry appears normal, Pupils are PERRLA. Neuro:. Neuro:. Cardiovascular: Capillary refill < 3 seconds Patient's skin is warm and dry. Respiratory: Airway is patent Respiratory effort is even, unlabored, Respiratory pattern is regular, symmetrical. GI: No signs and/or symptoms were reported involving the gastrointestinal system. Abdomen is round non-distended. : No signs and/or symptoms were reported regarding the genitourinary system. EENT: No signs and/or symptoms were reported regarding the EENT system. Derm: Skin is pink, warm \T\ dry. Musculoskeletal: Circulation, motion, and sensation intact. Range of motion: intact in all extremities. 18:30 Reassessment: Patient appears in no apparent distress at this time. Patient and/or eh3 family updated on plan of care and expected duration. Pain level reassessed. Patient is alert, oriented x 3, equal unlabored respirations, skin warm/dry/pink. Vital Signs: 17:22 BP 157 / 79; Pulse 84; Resp 18; Temp 97.2; Pulse Ox 100% on R/A; Weight 111.13 kg; hb Height 5 ft. 4 in. ; Pain 0/10; 17:22 Body Mass Index 42.05 (111.13 kg, 162.56 cm) hb 17:22 Pain Scale: Adult hb ED Course: 17:19 Patient arrived in ED. am2 17:26 Triage completed. 17:26 Arm band placed on. 17:30 Marc Alarcon PA is PHCP. 17:30 Destin Cintron MD is Attending Physician. cp 17:30 Maria De Jesus Ross, SHERRY is Primary Nurse. 3 17:30 Patient has correct armband on for positive identification. Bed in low position. Call 3 light in reach. Side rails up X2. Pulse ox on. NIBP on. Door closed. Noise minimized. Lights dimmed. 18:10 CT Head Brain wo Cont In Process Unspecified. EDMS Administered Medications: No medications were administered Outcome: 18:41 Discharge ordered by . cp 19:04 Patient left the ED. 3 Signatures: Dispatcher [employer] EDMS Marc Alarcon PA PA cp Baxter, Heather RN RN Xiomy Wong am2 Maria De Jesus Ross, SHERRY RN 3 Corrections: (The following items were deleted from the chart) : 17:22 Onset of symptoms was October 15, 2022 hb hb
== END 2022-10-29 19:04 | disposition home or self-care (01) ==
LOC: ER 17:18
DX: M62.838 Other muscle spasm (principal)
CPT/HCPCS: 70450; 99283

== ENCOUNTER 2023-07-08 17:14 | Emergency (ER) | payer SELFPAY ==
--- OUTSIDE RECORDS SUMMARY | 2023-07-08 17:35 | XMS REPORT | Continuity of Care Document ---
:1995 Author Organization [facility] t Address [address] [facility]. [address] [place] [address] Care Team Providers Name Role Phone Pcp, Patient Does Not Have A Primary Care Physician [phone] ANOOP CHRISTIANSON Attending Clinician Unavailable Uli Carter Attending Clinician Anoop Christianson DO Attending Clinician Doctor Unassigned, [place] [facility] Attending Clinician Unavailable CALIN VAN Attending Clinician Unavailable Delroy Waddell Attending Clinician Problems Condition Condition Condition Status Onset Resolution Last Treating Co mments Source Name Details Category Date Date Treatment Clinician Date Acute Acute Problem Resolve 2018-03-08 Dom kassie bronchioli bronchioli d 15:19:10 l tis tis Smooth (disorder) (disorder) Resolved Problem 03/08/2018 [facility] Morbid Morbid Problem Active 2018-03-08 Mem oria obesity obesity 15:19:10 l (disorder) (disorder) He rmann Active Problem 03/08/2018 [facility] Allergies, Adverse Reactions, Alerts Allergy Allergy Status Severity Reaction(s) Onset Inactive Treating Comm ents Source Name Type Date Date Clinician NO KNOWN Drug Active Univers ALLERGIE Class ity [facility] Social History Social Habit Start Date Stop Date Quantity Comments Source Sexual orientation [facility] Exposure to 2022-11-29 2022-12-09 Not sure [facility] SARS-CoV-2 (event) 00:00:00 13:17:00 [facility] Debby Sex Assigned At [birth year] [facility] 00:00:00 00:00:00 Medical Branch Smoking Status Start Date Stop Date Source Tobacco smoking consumption [facility] Medical unknown Branch Social History 2017-11-12 15:17:32 [facility] Her stewart Medications Ordered Filled Start Stop Current Ordering Indication Dosage Frequency Signature Comments Components Source Medication Medication Date Date Medication? Clinician (SIG) Name Name methylPREDN Yes [id number] Take by Univers ISolone 12-09 194504 mouth ity of (MEDROL, 00:00: SEE-INSTRU Sebas as KIKE,) 4 mg 00 CTIONS. Medica l tablets follow Branch package directions ciprofloxac Yes [id number] 4[drp] Place 4 Univers in-dexameth 12-09 [id number] Drops in it y of asone 00:00: left ear [place] 0.3-0.1 % 00 in the Medical otic drops morning Branch and 4 Drops in the evening. predniSONE 2016-08 Yes 10 mg = 1 Me moria 10 mg oral 2-15 tab, PO, l tablet 14:57: Daily, 0 Smooth 00 Refill(s) tramadol 2016-08 Yes 50 mg = 1 Dom kassie hydrochlori 2-15 tab, PO, l de 50 MG 14:57: Q4H, 0 [place] Oral Tablet 00 Refill(s) predniSONE 2016-08 Yes 10 mg = 1 Me moria 10 mg oral 2-15 tab, PO, l tablet 14:57: Daily, 0 Smooth 00 Refill(s) tramadol 2016-08 Yes 50 mg = 1 Dom kassie hydrochlori 2-15 tab, PO, l de 50 MG 14:57: Q4H, 0 [facility] Oral Tablet 00 Refill(s) predniSONE 2016-08 Yes 10 mg = 1 Me moria 10 mg oral 2-15 tab, PO, l tablet 14:57: Daily, 0 Smooth 00 Refill(s) tramadol 2016-08 Yes 50 mg = 1 Dom kassie hydrochlori 2-15 tab, PO, l de 50 MG 14:57: Q4H, 0 [place] Oral Tablet 00 Refill(s) tramadol 2016-08 Yes 50 mg = 1 Dom kassie hydrochlori 2-15 tab, PO, l de 50 MG 14:57: Q4H, 0 [place] Oral Tablet 00 Refill(s) predniSONE 2017- Yes 10 mg = 1 Me moria 10 mg oral 2-15 tab, PO, l tablet 14:57: Daily, 0 [place] 00 Refill(s) Vital Signs Vital Name Observation Time Observation Value Comments Source Systolic blood 2022-12-09 18:20:00 154 mm[Hg] [facility] Diastolic blood 2022-12-09 18:20:00 96 mm[Hg] Unive rsity [facility] Heart rate 2022-12-09 18:20:00 90 /min [facility] Body temperature 2022-12-09 18:20:00 37.11 [facility]ie [facility] Res[facility] rate 2022-12-09 18:20:00 18 /min [facility] Body height 2022-12-09 18:20:00 162.6 cm [facility] Body weight 2022-12-09 18:20:00 111.131 kg [facility] BMI 2022-12-09 18:20:00 42.05 kg/m2 [facility] Oxygen saturation in 2022-12-09 18:20:00 100 /min [facility] Arterial blood by [facility] Pulse oximetry Branch Height 2017-11-12 15:16:00 160.02 cm [facility] BMI Calculated 2017-11-12 15:16:00 Caitlinori al [facility] Weight 2017-11-12 15:16:00 [facility] [place] Systolic (mm Hg) 2017-11-12 15:16:00 Dom lowe [place] Diastolic (mm Hg) 2017-11-12 15:16:00 Mem orial [facility] Heart Rate 2017-11-12 15:16:00 [facility] [place] Temperature Oral (F) 2017-11-12 15:16:00 98.1 F [facility] BMI Calculated 2017-08-06 14:40:00 Memori al [place] Weight 2017-08-06 14:40:00 [facility] Height 2017-08-06 14:40:00 160.02 cm [facility] [place] Heart Rate 2017-08-06 14:40:00 [facility] [place] Temperature Oral (F) 2017-08-06 14:40:00 97.9 F [facility] [place] Systolic (mm Hg) 2017-08-06 14:40:00 Dom mynor Rebollar Diastolic (mm Hg) 2017-08-06 14:40:00 Mem orial [facility] Procedures Procedure Date / Time Performed Performing Clinician [facility] e CONSENT/REFUSAL FOR 2022-12-09 18:12:26 Doctor Unassigned, No Un [facility] DIAGNOSIS AND Name [facility] TREATMENT Encounters Start End Encounter Admission Attending Care Care Encounter Source Date/Time Date/Time Type Type Clinicians Facility Department ID 2023-06-21 2023-06-21 Outpatient SFA SFA [id number] Thad 15:42:08 15:42:08 1030 F Salas 2022-12-09 2022-12-09 Emergency X [facility] ERT [id number] Univers 13:46:00 14:01:00 ANOOP kwon [facility] 2022-12-09 2022-12-09 Emergency Uli Guerrero [facility] [id number] Univers 13:46:00 14:01:00 Anoop Christianson [id number] ity [facility] [id number] [facility] [place] [phone] [address] 2020-11-22 2020-11-22 Outpatient [facility] [id number] Univers 14:45:00 14:45:00 ity of [facility] 2020-11-01 2020-11-01 Outpatient [facility] [id number] Univers 14:35:00 14:35:00 ity of [facility] 2020-03-14 2020-03-14 Patient Doctor [facility] [id number] Univers 00:00:00 00:00:00 Secure Msg 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, 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 [id number] ity of [facility] [id number] Sebas as MATERNAL [id number] Med ical & CHILD [address] [place] [address] 2020-03-12 2020-03-12 Outpatient Rosibel [facility] [id number] Univers 17:00:00 17:00:00 CALIN kwon [facility] 2017-11-29 2017-12-01 Phone nullFlavo MNA [id number] Memoria 19:54:00 04:59:59 Message r Neurosurger 03 l y [facility] 2017-11-29 2017-12-01 Phone nullFlavo MNA [id number] Memoria 19:54:00 04:59:59 Message r Neurosurger 03 l y [facility] 2017-11-29 2017-11-30 Outpatient MHMISCHER MHMISCHER [id number] 14:54:00 23:59:59 03 2017-11-29 2017-11-30 Outpatient MHMISCHER MHMISCHER [id number] 14:54:00 23:59:59 2017-11-12 2017-11-13 Outpatient nullFlavo MNA [id number] Memoria 14:00:00 04:59:59 r Neurosurger 01 l y [facility] 2017-11-12 2017-11-13 Outpatient nullFlavo MNA [id number] Memoria 14:00:00 04:59:59 r Neurosurger 01 l y [facility] 2017-11-12 2017-11-12 Outpatient Delroy Waddell [email or web address] [id number] 09:00:00 23:59:59 Arjun 2017-11-12 2017-11-12 Outpatient MHIE MHIE [id number] Memoria 09:00:00 09:00:00 01 [facility] 2017-08-06 2017-08-07 Outpatient nullFlavo MNA [id number] Memoria 14:00:00 05:59:59 r Neurosurger 00 l y [facility] 2017-08-06 2017-08-07 Outpatient nullFlavo MNA [id number] Memoria 14:00:00 05:59:59 r Neurosurger 00 l y [facility] 2017-08-05 2017-08-07 Phone nullFlavo MNA [id number] Memoria 18:57:00 05:59:59 Message r Neurosurger 02 l y [facility] 2017-08-05 2017-08-07 Phone nullFlavo MNA [id number] Memoria 18:57:00 05:59:59 Message r Neurosurger 02 l y [facility] 2017-08-06 2017-08-06 [facility] [id number] 08:00:00 23:59:59 Arjun 00 2017-08-05 2017-08-06 [id number] 12:57:00 23:59:59 02 2017-08-06 2017-08-06 Outpatient [facility] [id number] [place] 08:00:00 08:00:00 00 shanta Rebollar Results This patient has no known results.
--- NOTE | 2023-07-08 18:34 | RAD REPORT ---
EXAM DESCRIPTION: CT - CTHCSPWOC - 07/08/2023 6:11 pm CLINICAL HISTORY: diplopia COMPARISON: No comparisons TECHNIQUE: Axial thin cut noncontrast CT images of the head were obtained. Axial thin cut noncontrast CT images of the cervical spine were obtained. Multiplanar reformatted images were generated and reviewed. All CT scans are performed using dose optimization technique as appropriate and may include automated exposure control or mA/KV adjustment according to patient size. FINDINGS: CT HEAD WITHOUT CONTRAST: No acute hemorrhage, hydrocephalus or extra-axial collection is identified.No areas of brain edema or midline shift. The paranasal sinuses and mastoids are clear.The calvarium is intact. CT CERVICAL SPINE WITHOUT CONTRAST: No fracture or subluxation.No prevertebral soft tissues swelling is identified. IMPRESSION: No acute traumatic intracranial or cervical spine findings.
[2023-07-08 19:31] LABS: Absolute Lymphocytes (CBC) 3.5 K/uL (0.7-4.9); Hematocrit 37.8 % (36.0-45.0); Lymphocytes % 40.6 % (15.3-44.8); MCV 75.7 fL (80-100); MPV 7.6 fL (7.6-11.3); Platelets 392 thou/uL (152-406); RBC Red Blood Cell Count 4.99 M/uL (3.86-4.86)
[2023-07-08 19:51] LABS: Albumin 3.3 g/dL (3.4-5.0); Bilirubin Total 0.2 mg/dL (0.2-1.0); Potassium 3.7 mEq/L (3.5-5.1); Protein, Total 7.5 g/dL (6.4-8.2)
--- NOTE | 2023-07-08 20:22 | ER ---
Nurse's Notes [facility] Name: Casi Cordova Age: 27 yrs Sex: Female : 1995 Arrival Date: 07/08/2023 Time: 17:14 Bed 11 Private MD: Diagnosis: Diplopia Presentation: 07/08 17:32 Chief complaint: Patient states: Had an episode this morning where "eyes felt crossed." ph blurred vision, symptoms resolved after 30 minutes, pt is concerned because she had a basilar skull fracture in 2017, c/o R sided neck soreness and mild headache. Coronavirus screen: Vaccine status: Patient reports receiving the 2nd dose of the covid vaccine. Ebola Screen: No symptoms or risks identified at this time. Initial Sepsis Screen: Does the patient meet any 2 criteria? No. Patient's initial sepsis screen is negative. Does the patient have a suspected source of infection? No. Patient's initial sepsis screen is negative. Risk Assessment: Do you want to hurt yourself or someone else? Patient reports no desire to harm self or others. Onset of symptoms was July 08, 2023. 17:32 Method Of Arrival: Ambulatory ph 17:32 Acuity: SANDRA 3 ph Historical: - Allergies: 17:36 No Known Allergies; ph - Home Meds: 17:36 None [Active]; ph - PMHx: 17:36 Basilar skull fractures 2016; ph - PSHx: 17:36 None; ph - Immunization history:: Adult Immunizations unknown. - Social history:: Smoking status: Reported history of juuling and/or vaping. - Family history:: not pertinent. Screenin:53 [facility] ED Fall Risk Assessment (Adult) History of falling in the last 3 months, ld1 including since admission No falls in past 3 months (0 pts). Abuse screen: Denies threats or abuse. Denies injuries from another. Nutritional screening: No deficits noted. Tuberculosis screening: No symptoms or risk factors identified. Assessment: 17:53 General: Appears in no apparent distress. comfortable, Behavior is calm, cooperative, ld1 appropriate for age. Pain: Denies pain. Neuro: Level of Consciousness is awake, alert, obeys commands, Oriented to person, place, time, situation. Neuro: Reports. Cardiovascular: Capillary refill < 3 seconds Patient's skin is warm and dry. Respiratory: Airway is patent Respiratory effort is even, unlabored. GI: Abdomen is flat, non-distended. : No signs and/or symptoms were reported regarding the genitourinary system. EENT: No signs and/or symptoms were reported regarding the EENT system. Derm: No signs and/or symptoms reported regarding the dermatologic system. Musculoskeletal: No signs and/or symptoms reported regarding the musculoskeletal system. Vital Signs: 17:32 BP 134 / 91; Pulse 77; Resp 17; Temp 97.9; Pulse Ox 100% on R/A; Weight 107.5 kg; ph Height 5 ft. 4 in. ; 17:53 BP 131 / 86; Pulse 74; Resp 18; Pulse Ox 100% on R/A; ld1 17:32 Body Mass Index 40.68 (107.50 kg, 162.56 cm) ph ED Course: 17:17 Patient arrived in ED. im 17:30 Akash Narayanan MD is Attending Physician. rt 17:35 Triage completed. ph 17:36 Arm band placed on Patient placed in an exam room. ph 17:37 Miracle Feldman, SHERRY is Primary Nurse. ld1 17:53 Patient has correct armband on for positive identification. Placed in gown. Bed in low ld1 position. Call light in reach. Side rails up X2. Pulse ox on. NIBP on. Door closed. Noise minimized. Warm blanket given. 18:11 CT Head C Spine In Process Unspecified. EDMS 19:30 No provider procedures requiring assistance completed. Inserted saline lock: 22 gauge rv in left antecubital area, using aseptic technique. Blood collected. 20:20 Nile Segundo MD is Referral Physician. rt 20:27 IV discontinued, intact, bleeding controlled, No redness/swelling at site. Pressure rv dressing applied. Administered Medications: No medications were administered Medication: 17:53 VIS not applicable for this client. ld1 Outcome: 20:21 Discharge ordered by . rt 20:28 Discharged to home ambulatory, rv 20:28 Condition: good 20:28 Discharge instructions given to patient, Instructed on discharge instructions, follow up and referral plans. Demonstrated understanding of instructions, follow-up care, 20:28 Patient left the ED. rv Signatures: Dispatcher [employer] EDKS Valery Ross RN RN Hector Oleary RN RN rv Miracle Feldman RN RN ld1 Akash Narayanan MD MD rt Aaliyah Bronson Corrections: (The following items were deleted from the chart) 17:36 17:36 PMHx: None; ph ph
--- NOTE | 2023-07-08 20:22 | EDPHYS ---
Physician Documentation [facility] Name: Casi Cordova Age: 27 yrs Sex: Female : 1995 Arrival Date: 07/08/2023 Time: 17:14 Bed 11 Private MD: ED Physician Akash Narayanan HPI: 07/08 21:39 This 27 yrs old Black Female presents to ER via Ambulatory with complaints of Double rt Vision. 21:39 Patient presents to the ED with blurred vision, double vision starting at about 1130 rt this morning. It lasted for about 30 minutes, she subsequently developed a headache which is typical for her chronic headaches that she has. This also resolved spontaneously. The patient states that she has no symptoms currently. Denies other acute complaints, symptoms are moderate severity, no other aggravating or elevating factors.. Historical: - Allergies: 17:36 No Known Allergies; ph - Home Meds: 17:36 None [Active]; ph - PMHx: 17:36 Basilar skull fractures 2017; ph - PSHx: 17:36 None; ph - Immunization history:: Adult Immunizations unknown. - Social history:: Smoking status: Reported history of juuling and/or vaping. - Family history:: not pertinent. ROS: 21:39 Constitutional: Negative for fever, chills, and weight loss, Cardiovascular: Negative rt for chest pain, palpitations, and edema, Respiratory: Negative for shortness of breath, cough, wheezing, and pleuritic chest pain, Abdomen/GI: Negative for abdominal pain, nausea, vomiting, diarrhea, and constipation, MS/Extremity: Negative for injury and deformity, Psych: Negative for depression, anxiety, suicide ideation, homicidal ideation, and hallucinations, 21:39 Eyes: Positive for Double vision, blurred vision, 21:39 Neuro: Positive for headache, Negative for altered mental status, Exam: 21:39 Constitutional: This is a well developed, well nourished patient who is awake, alert, rt and in no acute distress. Head/Face: Normocephalic, atraumatic. Chest/axilla: Normal chest wall appearance and motion. Nontender with no deformity. No lesions are appreciated. Cardiovascular: Regular rate and rhythm with a normal S1 and S2. No gallops, murmurs, or rubs. Normal PMI, no JVD. No pulse deficits. Respiratory: Lungs have equal breath sounds bilaterally, clear to auscultation and percussion. No rales, rhonchi or wheezes noted. No increased work of breathing, no retractions or nasal flaring. Abdomen/GI: Soft, non-tender, with normal bowel sounds. No distension or tympany. No guarding or rebound. No evidence of tenderness throughout. Skin: Warm, dry with normal turgor. Normal color with no rashes, no lesions, and no evidence of cellulitis. MS/ Extremity: Pulses equal, no cyanosis. Neurovascular intact. Full, normal range of motion. Psych: Awake, alert, with orientation to person, place and time. Behavior, mood, and affect are within normal limits. 21:39 Eyes: Extraocular muscles intact, pupils equal and reactive to light no visual field deficits. 21:39 Neuro: Cranial nerves II through XII intact, speech normal, no ataxia on [id number], strength and sensation intact in upper and lower extremities, Vital Signs: 17:32 BP 134 / 91; Pulse 77; Resp 17; Temp 97.9; Pulse Ox 100% on R/A; Weight 107.5 kg; ph Height 5 ft. 4 in. ; 17:53 BP 131 / 86; Pulse 74; Resp 18; Pulse Ox 100% on R/A; ld1 17:32 Body Mass Index 40.68 (107.50 kg, 162.56 cm) ph MDM: 17:42 Patient medically screened. rt 21:39 Differential Diagnosis Aura, complex migraine, CVA. Data reviewed: vital signs, nurses rt notes, lab test result(s), radiologic studies. Independent interpretation of the following test(s) in the Emergency Department CT Scan: My interpretation is No hemorrhage seen on interpretation of CT scan images. Test considered but Not performed: MRI: Patient has no risk factors for acute CVA, no focal neurologic deficits, symptoms are most consistent with either a headache aura or complex migraine and it completely resolved prior to arrival. Do not believe that MRI is indicated at this time.. Counseling: I had a detailed discussion with the patient and/or guardian regarding the historical points, exam findings, and any diagnostic results supporting the discharge/admit diagnosis, lab results, radiology results, the need for outpatient follow up. 07/08 17:59 Order name: CBC with Diff; Complete Time: 20:15 rt 07/08 17:59 Order name: CMP; Complete Time: 19:57 rt 07/08 17:59 Order name: CT Head C Spine; Complete Time: 18:40 rt Administered Medications: No medications were administered Disposition Summary: 07/08/23 20:21 Discharge Ordered Notes: Location: Home rt Problem: new rt Symptoms: are resolved rt Condition: Stable rt Diagnosis - Diplopia rt Followup: rt - With: Nile Segundo MD - When: 5 - 6 days - Reason: Discharge Instructions: - Discharge Summary Sheet rt - Diplopia rt Forms: - Work release form rv - Medication Reconciliation Form rt - Thank You Letter rt - Antibiotic Education rt - Prescription Opioid Use rt - Patient Portal Instructions rt - Leadership Thank You Letter rt Signatures: Dispatcher [employer] Valery Doyle RN RN ph Akash Narayanan MD MD rt Corrections: (The following items were deleted from the chart) 17:36 17:36 PMHx: None; ph ph
[2023-07-08 21:03] VITALS: TEMP 97.9; O2SAT 100
[2023-07-08 21:05] VITALS: BP 131/86
== END 2023-07-08 20:28 | disposition home or self-care (01) ==
LOC: ER 17:14
DX: H53.2 Diplopia (principal)
CPT/HCPCS: 36415; 70450; 72125; 80053; 85025; 99284

== ENCOUNTER 2023-08-12 11:51 | Inpatient (IN) | payer SELFPAY ==
--- NOTE | 2023-08-12 12:51 | RAD REPORT ---
EXAM DESCRIPTION: CT - Ct Stroke Brain Wo Cont - 08/12/2023 12:40 pm CLINICAL HISTORY: STROKE ALERT COMPARISON: Head Brain Wo Cont dated 10/29/2022; Head Brain Wo Cont dated 09/01/2019; Head C Spine Mpr Wo Con dated 07/08/2023 TECHNIQUE: Noncontrast head CT images were obtained without IV contrast. Multiplanar reformats were generated and reviewed. All CT scans are performed using dose optimization technique as appropriate and may include automated exposure control or mA/KV adjustment according to patient size. FINDINGS: No intracranial hemorrhage, mass, or edema. Midline structures are unremarkable. Normal ventricular caliber for age. Barbosa-white matter differentiation is preserved, without evidence of acute infarct. No abnormal extra- axial fluid collections. Mastoid air cells and visualized portions of the paranasal sinuses are clear. No acute bony findings. IMPRESSION: No evidence of an acute intracranial process. The findings were communicated to Akash Narayanan on 08/12/2023 at 12:46 hours.
--- NOTE | 2023-08-12 13:39 | RAD REPORT ---
[facility] 12[facility]54 pm CLINICAL HISTORY: vision loss COMPARISON: Chest Single View dated 07/23/2017; Chest Pa And Lat (2 Views) dated 01/12/2016 TECHNIQUE: Portable AP view of the chest. FINDINGS: The lungs are clear. No pneumothorax or effusion. The cardiomediastinal contours are unre markable. IMPRESSION: No acute cardiopulmonary process.
[2023-08-12 14:00] LABS: Absolute Lymphocytes (CBC) 2.1 K/uL (0.7-4.9); Hematocrit 38.7 % (36.0-45.0); Lymphocytes % 31.3 % (15.3-44.8); MCV 76.5 fL (80-100); MPV 7.7 fL (7.6-11.3); Platelets 385 thou/uL (152-406); RBC Red Blood Cell Count 5.06 M/uL (3.86-4.86)
[2023-08-12 14:07] LABS: Protime INR 1.29
[2023-08-12 14:21] LABS: Magnesium 2.1 mg/dL (1.6-2.4); Potassium 3.9 mEq/L (3.5-5.1); Troponin High Sensitivity 3.4 pg/mL (<58.9)
[2023-08-12 14:21] LABS: Barbiturates NEGATIVE (NEGATIVE); Benzodiazepines NEGATIVE (NEGATIVE); Cocaine NEGATIVE (NEGATIVE); METHAMPHETAM NEGATIVE (NEGATIVE); Methadone NEGATIVE (NEGATIVE); Opiates NEGATIVE (NEGATIVE); Phencyclidine NEGATIVE (NEGATIVE); THC Cannibis NEGATIVE (NEGATIVE)
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
[2023-08-12] MEDS ORDERED: ASPIRIN 325 MG TAB ONE (14:47)
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
[2023-08-12] MEDS: NA CHLORIDE 0.9% 1,000 ML IV SCH (16:00)
--- NOTE | 2023-08-12 17:38 | RAD REPORT ---
EXAM DESCRIPTION: MRI - Brain W/Wo Cont - 08/12/2023 3:57 pm CLINICAL HISTORY: monocular vision loss, cva workup COMPARISON: Head CT of earlier the same day and 07/08/2023 TECHNIQUE: Multiplanar multisequence MRI of the brain performed before and after intravenous adminis tration of 20 mL MultiHance. FINDINGS: Numerous periventricular and deep white matter T2/FLAIR signal abnormalities. Many of thes e are oriented perpendicular to the corpus callosum axis. Two foci show corresponding partial/ linear enhancement, in the left centrum semiovale, and right posterior basal ganglia region. Some of the fo ci show low signal intensity on T1. No corresponding diffusion signal abnormality. No evidence of acute infarct or other diffusion signal abnormality. No evidence of acute intracranial hemorrhage or abnormal extra-axial fluid collections. Ventricular caliber within normal for age. Midline structures are unremarkable. No mass effect or midline shift. Major vascular flow voids are preserved. Mastoid air cells and paranasal sinuses are clear. IMPRESSION: White matter signal abnormalities as above, most suggestive of demyelinating disease giv en the distribution, with suggestion of active disease corresponding to 2 enhancing foci in the left centrum semiovale and right posterior basal ganglia region. No other acute intracranial process. No evidence of ventriculomegaly or mass effect.
[2023-08-12] MEDS ORDERED: NA CHLORIDE 0.9% 1,000 ML ONE (20:37)
[2023-08-12] MEDS ORDERED: ACETAMINOPHEN 500 MG TAB ONE (23:34)
[2023-08-12] MEDS: ACETAMINOPHEN 500 MG TAB PO PRN (23:37)
[2023-08-13 06:20] LABS: RPR (Rapid Plasma Reagin) NON-REACT (NON-REACT)
[2023-08-13 07:53] LABS: Absolute Lymphocytes (CBC) 2.8 K/uL (0.7-4.9); Hematocrit 36.7 % (36.0-45.0); Lymphocytes % 38.5 % (15.3-44.8); MCV 76.3 fL (80-100); MPV 7.8 fL (7.6-11.3); Platelets 344 thou/uL (152-406); RBC Red Blood Cell Count 4.81 M/uL (3.86-4.86)
[2023-08-13 08:13] LABS: Phosphorus 4.2 mg/dL (2.5-4.9); Potassium 4.5 mEq/L (3.5-5.1); T4,Total 6.8 ug/dL (4.8-13.9); Thyroid Stimulating Hormone 0.685 uIU/mL (0.358-3.740)
[2023-08-13 08:55] VITALS: BMI 40.4
[2023-08-13] MEDS: NA CHLORIDE 0.9% 1,000 ML IV SCH (12:00)
--- NOTE | 2023-08-13 13:35 | P.PN ---
Subjective Date of Service: 08/13/23 Chief Complaint: Monocular vision loss ,r/o stroke Pt is resting comfortably in bed. She denies worsening of her vision. MRI brain shows 2 enhancing foci lesions in the centrum semi ovale and right posterior basal ganglia. It is concerning for MS flare. Waiting for Lumbar puncture and Neurology eval. No other complaints. Review of Systems Unremarkable General: Unremarkable Eyes: Vision Change ENT: Unremarkable Respiratory: Unremarkable Cardiovascular: Unremarkable Gastrointestinal: Unremarkable Genitourinary: Unremarkable Musculoskeletal: Unremarkable Integumentary: Unremarkable Neurological: Unremarkable Lymphatics: Unremarkable Physical Examination - Vital Signs Temperature: 97.3 F Blood Pressure: 98/50 Pulse: 67 Respirations: 16 Pulse Ox (%): 97 - Physical Exam General: Alert, In no apparent distress, Oriented x3 HEENT: Atraumatic, Normocephalic, PERRLA, Other (vision loss in the right eye.) Neck: Supple, 2+ carotid pulse no bruit Respiratory: Clear to auscultation bilaterally, Normal air movement Cardiovascular: No edema, Normal pulses Capillary refill: <2 Seconds Gastrointestinal: Normal bowel sounds, Soft and benign, Non-distended Musculoskeletal: No clubbing, No swelling Integumentary: No rashes, No breakdown Neurological: Normal gait, Normal speech, Normal strength at 5/5 x4 extr Lymphatics: No axilla or inguinal lymphadenopathy - Studies Laboratory Data (last 24 hrs) 08/12/23 08/12/23 08/12/23 13:50 13:50 13:50 WBC 6.60 Hgb 12.6 Hct 38.7 Plt Count 385 PT 14.1 H INR 1.29 APTT 37.1 H Sodium 136 Potassium 3.9 BUN 9 Creatinine 0.82 Glucose 85 Magnesium 2.1 Assessment And Plan - Plan CVA symptom/ mononuclear vision loss in the right eye. S/p subconjunctival hemorrhage. CT head is unremarkable. MRI brain shows MRI brain shows 2 enhancing foci lesions in the centrum semi ovale and right posterior basal ganglia. It is concerning for MS flare. Waiting for Lumbar puncture and Neurology eval. Will f/u Echo. Consulted Neurology. Subconjunctival hemorrhage: Will follow up with inspector balance truing. Avoid antiplatelet. Obesity: Pt was advised to lose weight Hx of migraine: Continue home med Hx of skull fracture: noted. DVT ppx: SCD Physician Review: Patient Assessed, Agree with Above Assessment and Plan
[2023-08-13] MEDS: ACETAMINOPHEN 500 MG TAB PO PRN (14:27)
[2023-08-13 14:53] LABS: CSF Glucose 55 mg/dL (40-70)
[2023-08-13 15:05] LABS: Body Fluid Source CSF; Fluid Total Volume 2 ml
[2023-08-13 15:06] LABS: Appearance CLEAR (CLEAR); Body Fluid WBC 2 /mm^3; Color of fluid Colorless (COLORLESS)
--- NOTE | 2023-08-13 15:08 | EKG ---
Test Date: 2023-08-12 Test Time: 13:20:50 Patient Intake Representative: VINICIUS MEASUREMENT RESULTS: Intervals: Rate: 80 [place]: 140 QRSD: 84 QT: 372 QTc: 429 Molt: P: 59 [place]: 140 QRS: 73 T: 58 INTERPRETIVE STATEMENTS: Normal sinus rhythm with sinus arrhythmia Cannot rule out Anterior infarct, age undetermined Abnormal ECG Compared to ECG 07/23/2017 04:33:08 Myocardial infarct finding now present Electronically Signed On 08-13-23 15:07:31 NET REPAIRER by Sean Tamayo
[2023-08-13] MEDS: METHYLPRED NA SUC 1,000 MG in NA CHLORIDE 0.9% 100 ML IV SCH (15:25)
--- NOTE | 2023-08-13 19:49 | RAD REPORT ---
EXAM DESCRIPTION: RAD - Lumbar Puncture For Dx - 08/13/2023 2:20 pm CLINICAL HISTORY: Multiple sclerosis/ vision loss COMPARISON: None FINDINGS: The risks, benefits and alternatives to the procedure were explained to the patient and in formed consent obtained. The patient was placed prone into the fluoroscopy suite. The skin, subcutaneous and deeper tissues we re anesthetized with lidocaine. Under fluoroscopic guidance a 22 gauge spinal needle was advanced int o the thecal sac at L2-3 level. Approximately 9 cc of CSF was removed and sent to the lab. The initial CSF was blood-tinged. It quick ly became clear. One fluoroscopic spot image obtained. Fluoroscopy time 2.3 minutes Patient experienced no immediate complication IMPRESSION: Lumbar puncture
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
[2023-08-14 03:04] LABS: Absolute Lymphocytes (CBC) 0.9 K/uL (0.7-4.9); Hematocrit 39.8 % (36.0-45.0); Lymphocytes % 9.1 % (15.3-44.8); MPV 8.2 fL (7.6-11.3); Platelets 387 thou/uL (152-406); RBC Red Blood Cell Count 5.17 M/uL (3.86-4.86)
[2023-08-14 03:23] LABS: Magnesium 1.8 mg/dL (1.6-2.4); Phosphorus 2.2 mg/dL (2.5-4.9); Potassium 3.8 mEq/L (3.5-5.1)
[2023-08-14 05:09] LABS: Platelet Estimate ADEQ; White Blood Cell Scan OK (OK)
[2023-08-14 05:10] LABS: Blood Morphology Comment NOT SEEN (NOT SEEN)
[2023-08-14] MEDS ORDERED: MAGNESIUM SULFATE 1 gm IVPB 1 GM/100 ML BAG IV ONE (06:00)
[2023-08-14] MEDS: VITAMIN D 5,000 UNIT CAP PO SCH (08:20)
[2023-08-14] MEDS ORDERED: ASPIRIN EC 81 MG TAB PO SCH (09:00)
[2023-08-14] MEDS ORDERED: POTASSIUM PHOS IN 0.9 % NACL 15 MMOL/250 ML BAG IV ONE (10:00)
--- NOTE | 2023-08-14 12:56 | P.PN ---
Subjective Date of Service: 08/14/23 Chief Complaint: Monocular vision loss ,r/o stroke Pt is resting comfortably in bed. She denies worsening of her vision. MRI brain shows 2 enhancing foci lesions in the centrum semi ovale and right posterior basal ganglia. It is concerning for MS flare. S/p Lumbar puncture. Will follow up CSF fluid analysis to r/o MS. On day 2 of solumedrol. No other complaints. Review of Systems Unremarkable General: Unremarkable Eyes: Unremarkable ENT: Unremarkable Respiratory: Unremarkable Cardiovascular: Unremarkable Gastrointestinal: Unremarkable Genitourinary: Unremarkable Musculoskeletal: Unremarkable Integumentary: Unremarkable Neurological: Unremarkable Lymphatics: Unremarkable Physical Examination - Vital Signs Temperature: 98.1 F Blood Pressure: 127/74 Pulse: 94 Respirations: 18 Pulse Ox (%): 99 - Physical Exam General: Alert, In no apparent distress, Oriented x3, Obese HEENT: Atraumatic, Normocephalic, PERRLA, Other (subconjunctival hemorrhage in right eye) Neck: Supple, 2+ carotid pulse no bruit Respiratory: Clear to auscultation bilaterally, Normal air movement Cardiovascular: No edema, Normal pulses, Regular rate/rhythm, Normal S1 S2 Capillary refill: <2 Seconds Gastrointestinal: Normal bowel sounds, Soft and benign, Non-distended Musculoskeletal: No clubbing, No swelling Integumentary: No rashes, No breakdown Neurological: Normal gait, Normal speech, Normal strength at 5/5 x4 extr Lymphatics: No axilla or inguinal lymphadenopathy Assessment And Plan - Plan CVA symptom/ mononuclear vision loss in the right eye. S/p subconjunctival hemorrhage. CT head is unremarkable. MRI brain shows MRI brain shows 2 enhancing foci lesions in the centrum semi ovale and right posterior basal ganglia. It is concerning for MS flare. Pt did Lumbar puncture. Will follow up CSF analysis to r/o MS. Continue solumedrol 1000mg iv daily ( day2 of 5). Will f/u Echo. Co nsulted Neurology. Subconjunctival hemorrhage: Will follow up with event promotions coordinator. Avoid antiplatelet. Obesity: Pt was advised to lose weight Hx of migraine: Continue home med Hx of skull fracture: noted. DVT ppx: SCD Physician Review: Patient Assessed, Agree with Above Assessment and Plan
[2023-08-14] MEDS: METHYLPRED NA SUC 1,000 MG in NA CHLORIDE 0.9% 100 ML IV SCH (14:35)
[2023-08-14] MEDS: NA CHLORIDE 0.9% 1,000 ML IV SCH (19:45)
[2023-08-14 20:21] VITALS: O2SAT 100
[2023-08-14] MEDS ORDERED: ACETAMINOPHEN 500 MG TAB ONE (21:35)
[2023-08-14] MEDS: ACETAMINOPHEN 500 MG TAB PO PRN (21:35)
[2023-08-15] MEDS: NA CHLORIDE 0.9% 1,000 ML IV SCH (04:00)
[2023-08-15 04:36] LABS: Hematocrit 37.3 % (36.0-45.0); Lymphocytes % 4.9 % (15.3-44.8); MCV 76.6 fL (80-100); Platelets 408 thou/uL (152-406); RBC Red Blood Cell Count 4.88 M/uL (3.86-4.86)
[2023-08-15 04:52] LABS: Magnesium 2.4 mg/dL (1.6-2.4); Phosphorus 2.7 mg/dL (2.5-4.9); Potassium 4.6 mEq/L (3.5-5.1)
[2023-08-15] MEDS ORDERED: VITAMIN D 1000 UNIT TAB ONE ×2 (08:02→08:21)
[2023-08-15] MEDS ORDERED: NA CHLORIDE 0.9% 100 ML ONE (08:03)
[2023-08-15] MEDS: METHYLPRED NA SUC 1,000 MG in NA CHLORIDE 0.9% 100 ML IV SCH (08:30)
[2023-08-15] MEDS: VITAMIN D 5,000 UNIT CAP PO SCH (08:31)
[2023-08-15 09:09] VITALS: BP 114/70; TEMP 97.8
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
--- NOTE | 2023-08-17 08:03 | ECHO ---
HEIGHT: 5 ft 4 in WEIGHT: 235 lb 6.4 oz DATE OF STUDY: 08/13/[address]: Rhonda Smith NP 2-DIMENSIONAL: YES M.MODE: YES DOPPLER: YES COLOR FLOW: YES TDS: PORTABLE: YES DEFINITY: BUBBLE STUDY: DIAGNOSIS: CARDIAC HISTORY: CATHERIZATION: SURGERY: PROSTHETIC VALVE: PACEMAKER: MEASUREMENTS (cm) DIASTOLIC (NORMALS) SYSTOLIC (NORMALS) IVSd 0.9 (0.6-1.2) LA Diam 3.1 (1.9-4.0) LVEF 64% LVIDd 3.7 (3.5-5.7) LVIDs 2.4 (2.0-3.5) %FS 34% LVPWd 1.0 (0.6-1.2) Ao Diam 2.5 (2.0-3.7) 2 DIMENSIONAL ASSESSMENT: RIGHT ATRIUM: NORMAL LEFT ATRIUM: NORMAL RIGHT VENTRICLE: NORMAL LEFT VENTRICLE: NORMAL TRICUSPID VALVE: NORMAL MITRAL VALVE: NORMAL PULMONIC VALVE: NORMAL AORTIC VALVE: NORMAL PERICARDIAL EFFUSION: NONE AORTIC ROOT: NORMAL LEFT VENTRICULAR WALL MOTION: NORMAL DOPPLER/COLOR FLOW: NORMAL COMMENTS: 1. NORMAL LEFT VENTRICULAR EJECTION FRACTION 55-60% 2. NORMAL WALL MOTION 3. NORMAL DIASTOLIC FUNCTION TECHNOLOGIST: CLEM TENA
[2023-08-17 14:10] LABS: Alpha-1-Globulins 0.4 g/dL (0.2-0.3); Alpha-2-Globulins 0.9 g/dL (0.5-0.9); Gamma Globulins 1.1 g/dL (0.8-1.7); INTERPRETATION REPORT
[2023-08-19 13:03] LABS: Protein C Antigen 99 % normal (70-140)
[2023-08-20 19:03] LABS: Prothrombin Gene Analysis Test NEGATIVE
[2023-09-07 09:19] LABS: Phosphatidylser & Prothrom IgG 12
[2023-09-07 09:20] LABS: Phosphatidylser & Prothrom IgM 13
== END 2023-08-15 10:55 | disposition home or self-care (01) | DRG 60 ==
LOC: ER 11:51 → OBSVTOIN 15:21 → ERHOLD 15:21 → 2ND 08-13 08:26 → 3RD-ICU 08-14 20:08
PROVIDERS: ADMIT Hospitalist; ATTEND Hospitalist
PROC: 009U3ZX Drainage of Spinal Canal, Percutaneous Approach, Diagnostic (ICD-10-PCS; principal; 2023-08-13)
DX: G35 Multiple sclerosis (principal); H11.31 Conjunctival hemorrhage, right eye; H54.61 Unqualified visual loss, right eye, normal vision left eye; G43.909 Migraine, unspecified, not intractable, without status migrainosus; E66.9 Obesity, unspecified; Z68.35 Body mass index [BMI] 35.0-35.9, adult
CPT/HCPCS: 36415; 70450; 70553; 71045; 77003; 80048; 80061; 80307; 81240; 81241; 82164; 82306; 82607; 82945; 83090; 83516; 83735; 84100; 84157; 84165; 84436; 84443; 84484; 85025; 85300; 85302; 85305; 85306; 85610; 85730; 86021; 86146; 86147; 86592; 88108; 89050; 92610; 93005; 93306; 94760; 97116; 97161; 99283; A9577; J2930; J3475; J7030

== ENCOUNTER 2023-12-07 09:04 | Emergency (ER) | payer OTHER ==
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
[2023-12-07 12:29] VITALS: BP 122/76; TEMP 98.2; O2SAT 100
== END 2023-12-07 09:45 | disposition left against medical advice (07) ==
LOC: ER 09:04
DX: G35 Multiple sclerosis (principal)
CPT/HCPCS: 99281

== ENCOUNTER 2024-12-08 00:12 | Emergency (ER) | payer OTHER ==
--- OUTSIDE RECORDS SUMMARY | 2024-12-08 00:16 | XMS REPORT | Continuity of Care Document ---
Author Name Unknown Address [address] [place] [address] Organization [facility] Address [address] [place] [address] Care Team Providers Care Database Software Technician Name Role Phone Pcp, Patient Does Not Have A Primary Care Physic lisa [email or web address]_S Attending Clinician Unavaila ANOOP Perales Attending Clinician Unavailable Uli Carter Attending Clinician [phone] Anoop Christianson DO Attending Clinician [phone] Doctor Unassigned, [place] Attending Clinician U CALIN Bansal Attending Clinician Unavailable [email or web address]_S Admitting Clinician Kady navas Payers Payer Name Policy Type Policy Number Effective Date Expirati on Date Source NAMAMY Joaquina MOREAU [facility] [employer] [facility] [place] [id number] 2023 00:00:00 Problems Condition Name Condition Details Condition Category Status Onset Date Resolution Date Last Treatment Date Treating Clinician Comments Source Candidal vulvovagin itis Candidal Vulvovagin itis Problem Active 10-20 00:00: 00 [facility] Multiple sclerosis Multiple Sclerosis Problem Active 10-19 00:00: 00 [facility] Dysuria Dysuria Problem Active 10-19 00:00: 00 [facility] Atypical squamous cells of undetermin ed significan ce on cervical Papanicola ou smear Atypical Squamous Cells of Undetermin ed Significan ce on Cervical Papanicola ou Smear Problem Active 2-27 00:00: 00 [facility] Abnormal cervical Papanicola ou smear Abnormal Cervical Papanicola ou Smear Problem Active 3-29 00:00: 00 [facility] Bacterial vaginosis Bacterial Vaginosis Problem Active 2-11 00:00: 00 [facility] Anxiety Anxiety Problem Active 2- 00:00: 00 [facility] Depressive disorder Depressive Disorder Problem Active 2- 00:00: 00 [facility] Visual disturbanc e Visual Disturbanc e Problem Active 2- 00:00: 00 [facility] Acute vaginitis Acute Vaginitis Problem Active 10-01 00:00: 00 [facility] Acute bronchioli tis (disorder) Acute bronchioli tis (disorder) Resolved Problem 03/08/2018 [facility] Problem Resolve d 2018-03-08 15:19:10 [facility] Morbid obesity (disorder) Morbid obesity (disorder) Active Problem 03/08/2018 [facility] Problem Active 2018-03-08 15:19:10 [facility] Allergies, Adverse Reactions, Alerts Allergy Name Allergy Type Status Severity Reaction(s) Onset Date Inactive Date Treating Clinician Comments Source NO KNOWN ALLERGIE S Drug Class Active [facility] Social History Social Habit Start Date Stop Date Quantity Comments Source Sexual orientation U [facility] Exposure to SARS-CoV-2 (event) 2022-11-29 00:00:00 2022-12-09 13:17:00 Not sure [facility] Sex Assigned At 1995 00:00:00 1995 00:00:00 [facility] Smoking Status Start Date Stop Date Source Never Smoker [facility] Tobacco smoking consumption unknown [facility] Social History 2017-11-12 15:17:32 Britt Glaser Medications Ordered Medication Name Filled Medication Name Start Date Stop Date Current Medication? Ordering Clinician Indication Dosage Frequency Signature (SIG) Comments Components Source methylPREDN ISolone (MEDROL, KIKE,) 4 mg tablets 12-09 00:00: 00 Yes [id number] Take by mouth SEE-INSTRU CTIONS. follow package directions [facility] ciprofloxac in-dexameth asone 0.3-0.1 % otic drops 419 00:00: 00 Yes [id number] 4[drp] Place 4 Drops in left ear in the morning and 4 Drops in the evening. [facility] tramadol hydrochlori de 50 MG Oral Tablet 2016-08 14:57: 00 Yes 50 mg = 1 tab, PO, Q4H, 0 Refill(s) [facility] predniSONE 10 mg oral tablet 2016-08 14:57: 00 Yes 10 mg = 1 tab, PO, Daily, 0 Refill(s) [facility] fluconazole 150 mg tablet Take 1 tablet every 72 hours by oral route for 4 days. fluconazole 150 mg tablet Take 1 tablet every 72 hours by oral route for 4 days. No 1 fluconazol e 150 mg tablet Take 1 tablet every 72 hours by oral route for [address] [facility] Kesimpta Pen Kesimpta Pen No Kesimpta Pen [facility] Sprintec (28) 0.25 mg-35 mcg tablet Take 1 tablet every day by oral route for 90 days. Sprintec (28) 0.25 mg-35 mcg tablet Take 1 tablet every day by oral route for 90 days. No 1 Q1D Sprintec (28) 0.25 mg-35 mcg tablet Take 1 tablet every day by oral route for [address] [facility] Immunizations Ordered Immunization Name Filled Immunization Name Date Status Comments Source SARS-COV-2 COVID-19 PFIZER VACCINE 2020-11-22 00:00:00 Completed [facility] SARS-COV-2 COVID-19 PFIZER VACCINE 2020-11-01 00:00:00 Completed [facility] HPV9 HPV9 Unknown Completed [facility] Med ical Vital Signs Vital Name Observation Time Observation Value Comments S ource BP Diastolic 2024-10-19 00:00:00 62 mm[Hg] [facility] Body Weight 2024-10-19 00:00:00 233.6 [lb_av] [facility] BMI (Body Mass Index) 2024-10-19 00:00:00 40[facility]1 [facility] Systolic 2024-10-19 00:00:00 97 mm[Hg] [facility] Height 2024-10-19 00:00:00 64 [in_i] [facility] Height 2023-11-19 00:00:00 64 [in_i] [facility] Systolic blood pressure 2022-12-09 18:20:00 154 mm[Hg] [facility] Diastolic blood pressure 2022-12-09 18:20:00 96 mm[Hg] [facility] Heart rate 2022-12-09 18:20:00 90 /[facility] 2022-12-09 18:20:00 37.11 Roxie [facility] Respiratory rate 2022-12-09 18:20:00 18 /min [facility] Body height 2022-12-09 18:20:00 162.6 cm [facility] Body weight 2022-12-09 18:20:00 111.131 kg [facility] BMI 2022-12-09 18:20:00 42.05 kg/m2 [facility] Oxygen saturation in Arterial blood by Pulse oximetry 2022-12-09 18:20:00 100 /min [facility] BMI Calculated 2017-11-12 15:16:00 [facility] Weight 2017-11-12 15:16:00 [facility] Systolic (mm Hg) 2017-11-12 15:16:00 [facility] Diastolic (mm Hg) 2017-11-12 15:16:00 [facility] Heart Rate 2017-11-12 15:16:00 [facility] Temperature Oral (F) 2017-11-12 15:16:00 98.1 F [facility] Height 2017-11-12 15:16:00 160.02 cm [facility] BMI Calculated 2017-08-06 14:40:00 [facility] Weight 2017-08-06 14:40:00 [facility] Height 2017-08-06 14:40:00 160.02 cm [facility] Rate 2017-08-06 14:40:00 [facility] Temperature Oral (F) 2017-08-06 14:40:00 97.9 F [facility] Systolic (mm Hg) 2017-08-06 14:40:00 [facility] Diastolic (mm Hg) 2017-08-06 14:40:00 [facility] Procedures Procedure Date / Time Performed Performing Clinicia n Source CONSENT/REFUSAL FOR DIAGNOSIS AND TREATMENT 2022-12-09 18:12:26 Doctor Unassigned, [facility] Encounters Start Date/Time End Date/Time Encounter Type Admission Type Attending [facility] Care Department Encounter ID Source 2024-10-19 00:00:00 2024-10-19 00:00:00 LAWRENCE SeguraP: [address], [place] [address] , Ph. [facility] - GC_GCBZW_Maria G Jonas* [id number] [facility] 2024-05-22 00:00:00 2024-05-22 00:00:00 Yanely Grace MD: [address], [place] [id number] , Ph. [facility] - GC_GCBZW_Maria G Jonas* [id number] [facility] 2024-01-20 00:00:00 2024-01-20 00:00:00 Yanely Grace MD: [address], [place] [id number] , Ph. [facility] - GC_GCBZW_Maria G Jonas* [id number] [facility] 2023-11-19 00:00:00 2023-11-19 00:00:00 Yanely Grace MD: [address], [place] [address] , Ph. GC_GCBZW_Kavin herrera_S [facility] - GC_GCBZW_Maria G Jonas* [id number] [facility] 2023-10-25 00:00:00 2023-10-25 00:00:00 Outpatient GC_GCBZW_Ka diyala_S PRIV PRIV [id number] [facility] 2023-10-14 00:00:00 2023-10-14 00:00:00 Outpatient GC_GCBZW_Ka diyala_S PRIV PRIV [id number] [facility] 2023-10-05 00:00:00 2023-10-05 00:00:00 Outpatient GC_GCBZW_Ka diyala_S PRIV PRIV [id number] [facility] 2023-10-01 00:00:00 2023-10-01 00:00:00 Outpatient GC_GCBZW_Ka diyala_S PRIV PRIV [id number] [facility] 2023-09-29 00:00:00 2023-09-29 00:00:00 Outpatient GC_GCBZW_Ka diyala_S PRIV PRIV [id number] [facility] 2023-06-21 15:42:08 2023-06-21 15:42:[address] [facility] [id number] 2022-12-09 13:46:00 2022-12-09 14:01:00 Emergency X [facility] E[facility] [id number] [facility] 2022-12-09 13:46:00 2022-12-09 14:01:00 Emergency Uli Guerrero Phillip [facility] [id number] [facility] 2020-11-22 14:45:00 2020-11-22 14:45:00 Outpatient [facility] [id number] [facility] 2020-11-01 14:35:00 2020-11-01 14:35:00 Outpatient [facility] [id number] [facility] 2020-03-14 00:00:00 2020-03-14 00:00:00 Patient Secure Msg Doctor Unassigned, [facility] 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 [facility] 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 & CHILD [facility] [id number] [facility] 2020-03-12 17:00:00 2020-03-12 17:00:00 Outpatient [facility]IN REAGAN [facility] [id number] [facility] 2017-11-29 19:54:00 2017-12-01 04:59:59 Phone Message nullFlavo r MNA Neurosurger y [facility] [id number] [facility] 2017-11-12 14:00:00 2017-11-13 04:59:59 Outpatient nullFlavo r [facility] Neurosur[facility] [id number] [facility] 2017-08-06 14:00:00 2017-08-07 05:59:59 Outpatient nullFlavo r [facility]NA Neurosurger y [facility] [id number] [facility] 2017-08-05 18:57:00 2017-08-07 05:59:59 Phone Message nullFlavo r MNA Neurosurger y [facility] [id number] [facility] Results Test Description Test Time Test Comments Results Result Co mments Source [facility] [id number] 11:04:22* Test Item Value Reference Range Interpretation Comme nts Leukocytes (test code = Leukocytes) Negative Nitrite (test code = Nitrite) negative Urobilinogen (test code = Urobilinogen) Normal Protein (test code = Protein) Negative pH (test code = pH) 6.0 Blood (test code = Blood) Negative Specific Clarinda (test code = Specific Clarinda) 1.025 Ketone (test code = Ketone) Negative Bilirubin (test code = Bilirubin) Negative Glucose (test code = Glucose) Negative Appearance (test code = Appearance) Clear Color (test code = Color) Yellow [facility], [id number] 11:29:41* Test Item Value Reference Range Interpretation Comme nts HCG (test code = HCG) negative [facility]
--- NOTE | 2024-12-08 00:32 | ER ---
Nurse's Notes [facility] Name: Casi Cordova Age: 29 yrs Sex: Female : 1995 Arrival Date: 12/08/2024 Time: 00:12 Bed Waiting [facility] MD: Diagnosis: ED Course: 12/08 00:16 Patient arrived in ED. al6 Administered Medications: No medications were administered Outcome: 00:31 Patient left the ED. br2 Signatures: Geneva Garcia RN RN br2 Jazz Moran al6
== END 2024-12-08 00:31 | disposition left against medical advice (07) ==
LOC: ER 00:12
DX: Z02.9 Encounter for administrative examinations, unspecified (principal)